=== PATIENT | female | born 1970 ===

== ENCOUNTER 2017-05-17 11:24 | Inpatient (IN) | payer OTHER ==
--- NOTE | 2017-05-17 13:07 | RAD ---
Indication: Seizure last night. RIGHT side numbness and weakness. Comparison: No relevant prior exams available on the [facility] PACS for comparison. Technique: Noncontrast CT vertex of skull through foramen magnum. Report: The sulci, ventricles, and basal cisterns are normal for age. Lam matter white matter differentiation is preserved without evidence for edema. No intra or extra axial hemorrhage, mass, or fluid collection detected. Unremarkable visualized orbital contents. Unremarkable calvarium and skull base. Unremarkable scalp. The visualized paranasal sinuses and mastoid air spaces are clear. IMPRESSION: Negative unenhanced head CT.
--- NOTE | 2017-05-17 13:09 | RAD ---
Indication: Seizure last night. RIGHT-sided weakness. Comparison: No relevant prior exams available on the [facility] PACS for comparison. Technique: Sitting AP chest 1303 hours Report: Mild bibasilar opacities with some linear characteristics most suspicious for subsegmental atelectasis. Negative for pleural effusion or pneumothorax. Upper normal heart size. Unremarkable central pulmonary vasculature and mediastinal contours. No thoracic fractures evident. IMPRESSION: Mild bibasilar subsegmental atelectasis.
[2017-05-17] MEDS ORDERED: Aspirin Low Dose CHEW TAB* 81 MG PO ONE (13:21)
[2017-05-17 13:38] LABS: Hematocrit 36 % (35-47); Hemoglobin 11.3 g/dl (12.0-16.0); Mean Corpuscular HGB Conc 31 g/dl (31-36); Mean Corpuscular Hemoglobin 22 pg (27-31); Mean Corpuscular Volume 72 fL (80-97); Mean Platelet Volume 8 um3 (7.4-10.4); Platelet Count 238 10^3/ul (150-450); Red Blood Count 5.05 10^6/ul (4.0-5.4); Red Cell Distribution Width 20 % (10.5-15); White Blood Count 4.5 10^3/ul (3.5-10.8)
[2017-05-17 13:41] LABS: INR 0.95 (0.77-1.02)
[2017-05-17 13:49] LABS: EGFR Non-African American 89.4 (>60)
[2017-05-17 13:53] LABS: Urine Appearance Clear; Urine Blood Negative (Negative); Urine Color Straw; Urine Ketones Negative (Negative); Urine Protein Negative (Negative); Urine Specific Gravity 1.005 (1.010-1.030); Urine Urobilinogen Negative (Negative)
[2017-05-17 14:05] LABS: ABS Basophils 0 10^3/ul (0-0.2); ABS Eosinophils 0.3 10^3/ul (0-0.6); ABS Lymphocytes 1.6 10^3/ul (1.0-4.8); ABS Monocytes 0.3 10^3/ul (0-0.8); ABS Neutrophils 2.3 10^3/ul (1.5-7.7); ABS Nucleated RBC 0 10^3/ul; Eosinophil % 6.3 % (0-6); Lymphocyte % 36.1 % (25-47); Nucleated Red Blood Cells % 0
[2017-05-17] MEDS ORDERED: LORazepam INJ* 2 MG/ML 1 ML VIAL ONE ×2 (15:53→19:16)
[2017-05-17] MEDS ORDERED: Midazolam* 1 MG/ML 2 ML VIAL (2 MG) ONE ×2 (15:57→16:00)
[2017-05-17] MEDS ORDERED: Midazolam* 1 MG/ML 2 ML VIAL (2 MG) IV ONE ×2 (15:58→15:59)
[2017-05-17] MEDS ORDERED: LORazepam INJ* 2 MG/ML 1 ML VIAL IV PUSH ONE ×2 (15:58→19:19)
--- NOTE | 2017-05-17 17:31 | RAD ---
Indication: RIGHT side weakness. Seizure activity. Comparison: CT brain of the same date. Technique: [employer] [place] 1.5 Linda [id number] with GEM suite. MRI brain without contrast. Seizure protocol. Report: Diffusion series is negative for acute or subacute ischemia. Susceptibility series is negative for stigmata of hemosiderin deposition to indicate previous hemorrhage. Unremarkable cerebral sulci, ventricles, and basal cisterns. Normal patterns of signal intensity throughout the cerebrum and posterior fossa. No intra or extra-axial lesions, developmental anomalies, or fluid collections evident. Unremarkable orbital contents. Preserved major intracranial flow-voids. Unremarkable calvarium and skull base. Grossly clear paranasal sinuses and mastoid air spaces. Unremarkable scalp. IMPRESSION: Negative unenhanced MRI of the brain.
[2017-05-17] MEDS ORDERED: Albuterol HFA INHALER* 8 gm MDI INH PRN (18:44)
[2017-05-17] MEDS: Phenytoin CAP(*) 100 MG CAP.ER PO SCH (21:09)
[2017-05-17] MEDS: levETIRAcetam TAB* 500 MG PO SCH (21:10)
[2017-05-17] MEDS: Polyethylene Glycol 3350* 17 GM PACKET PO SCH (22:12)
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
[2017-05-18] MEDS: LORazepam INJ* 2 MG/ML 1 ML VIAL IV PUSH PRN ×3 (02:02→08:42)
--- NOTE | 2017-05-18 02:38 | PN ---
Progress Note - Progress Note Date of Service: 05/18/17 Note: Paged - patient had seizure where she rolled onto her right side and upper extremities were clenched down. Ativan 2 mg was given. Patient now appears to be postictal and able to respond to voice.
[2017-05-18] MEDS ORDERED: LORazepam INJ* 2 MG/ML 1 ML VIAL IV PUSH ONE (03:45)
[2017-05-18] MEDS ORDERED: LORazepam INJ* 2 MG/ML 1 ML VIAL IV PUSH PRN (04:06)
[2017-05-18 06:15] LABS: EGFR Non-African American 90.9 (>60)
[2017-05-18] MEDS: Levothyroxine TAB* 100 MCG TAB PO SCH (06:21)
[2017-05-18] MEDS: NS 0.9% 1000 ML* 1,000 ML IV SCH ×2 (09:28→16:53)
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
[2017-05-18] MEDS: levETIRAcetam TAB* 500 MG PO SCH (10:34)
[2017-05-18] MEDS: Phenytoin CAP(*) 100 MG CAP.ER PO SCH (10:39)
[2017-05-18] MEDS: Cetirizine* 10 MG TAB PO SCH (10:39)
[2017-05-18] MEDS: Montelukast Sodium TAB* 10 MG PO SCH (10:41)
--- NOTE | 2017-05-18 10:52 | ED ---
Radha Garvey Edward, scribed for David Kumar MD on 05/17/17 at 1249 . Neurological HPI - HPI Summary HPI Summary: 46 y/o female brought in by correctional officers c/o R hand stuck in bent position and general R sided weakness s/p seizure yesterday morning sometime around 06:30 - 07:00. Pt has had these sx since yesterday. Pt has never had these symptoms before. Not aggravated or alleviated by anything. - History of Current Complaint Chief Complaint: EDNeurologicalDeficit Stated Complaint: RT SIDED NUMBNESS Time Seen by Provider: 05/17/17 12:38 Hx Obtained From: Patient Onset/Duration: Started hours ago Timing: Constant Number of Seizures: 1 Pain Intensity: 0 Aggravating: Nothing Alleviating: Nothing Associated Signs and Symptoms: Positive: Weakness - general R side, R hand stuck in bent position, Seizure - Allergy/Home Medications Allergies/Adverse Reactions: Allergies Allergy/AdvReac Type Severity Reaction Status Date / Time divalproex sodium Allergy Rash Verified 05/17/17 17:50 [From Depakote] methylprednisolone Allergy Hallucinati Verified 05/17/17 17:48 [From Solu-Medrol] ons risperidone [From Risperdal] Allergy Rash Verified 05/17/17 17:50 sulfamethoxazole Allergy Unknown Verified 05/17/17 17:42 [From Bactrim] Reaction Details theophylline Allergy Rash Verified 05/17/17 17:50 trimethoprim [From Bactrim] Allergy Unknown Verified 05/17/17 17:42 Reaction Details Home Medications: Home Medications Albuterol HFA INHALER* [Ventolin HFA Inhaler*] 2 puff INH Q4H PRN 05/17/17 [ History Confirmed 05/17/17] Cetirizine* [ZyrTEC 10 MG TAB*] 10 mg PO DAILY 05/17/17 [History Confirmed 05/17] Glecaprevir/Pibrentasvir [Mavyret 100-40 mg Tablet] 3 cap PO DAILY 05/17/17 [ History Confirmed 05/17/17] Levothyroxine TAB* [Synthroid TAB*] 100 mcg PO DAILY 05/17/17 [History Confirmed 05/17/17] Naproxen TAB* [Naprosyn 375 mg TAB*] 375 mg PO BID 05/17/17 [History Confirmed 05/17/17] Phenytoin CAP(*) [Dilantin CAP(*)] 200 mg PO BID 05/17/17 [History Confirmed 02/21] Polyethylene Glycol 3350* [Miralax*] 17 gm PO BID 05/17/17 [History Confirmed ] Zafirlukast (NF) [Accolate (NF)] 20 mg PO BID 05/17/17 [History Confirmed ] levETIRAcetam TAB* [Keppra TAB*] 1,250 mg PO BID 05/17/17 [History Confirmed 02/21] PMH/Surg Hx/FS Hx/Imm Hx Previously Healthy: No Endocrine/Hematology History: Reports: Other Endocrine/Hematological Disorders - HLD Denies: Hx Diabetes Cardiovascular History: Reports: Hx Hypertension Neurological History: Reports: Other Neuro Impairments/Disorders - epilepsy - Cancer History Hx Chemotherapy: No Hx Radiation Therapy: No - Surgical History Surgery Procedure, Year, and Place: HYSTERECTOMY, back surgery, jaw reconstruction Infectious Disease History: No Infectious Disease History: Reports: Hx Hepatitis - C Denies: Traveled Outside the [place] in Last 30 Days - Family History Known Family History: Positive: Diabetes - Social History Alcohol Use: None Hx Substance Use: No Substance Use Type: Reports: None Hx Tobacco Use: Yes Smoking Status (MU): Current Every Day Smoker Review of Systems Constitutional: Negative Eyes: Negative ENT: Negative Cardiovascular: Negative Respiratory: Negative Gastrointestinal: Negative Genitourinary: Negative Musculoskeletal: Negative Skin: Negative Neurological: Other - R hand stuck Positive: Weakness - R side weakness Psychological: Normal All Other Systems Reviewed And Are Negative: Yes Physical Exam - Summary Physical Exam Summary: VITAL SIGNS: Reviewed. GENERAL: Patient is a well-developed and nourished female who is lying comfortable in the stretcher. Patient is not in any acute respiratory distress. HEAD AND FACE: No signs of trauma. No ecchymosis, hematomas or skull depressions. No sinus tenderness. EYES: PERRLA, EOMI x 2, No injected conjunctiva, no nystagmus. No photophobia. EARS: Hearing grossly intact. Ear canals and tympanic membranes are within normal limits. MOUTH: Oropharynx within normal limits. NECK: Supple, trachea is midline, no adenopathy, no JVD, no carotid bruit, no c- spine tenderness, neck with full ROM. No meningeal signs, no Kernig's or brudzinskis signs. CHEST: Symmetric, no tenderness at palpation LUNGS: Clear to auscultation bilaterally. No wheezing or crackles. CVS: Regular rate and rhythm, S1 and S2 present, no murmurs or gallops appreciated. ABDOMEN: Soft, non-tender. No signs of distention. No rebound no guarding, and no masses palpated. Bowel sounds are normal. EXTREMITIES: FROM in all major joints, no edema, no cyanosis or clubbing. NEURO: Alert and oriented x 3. Pt has RLE and RUE weakness. NIH score 7. Speech is normal and follows commands. SKIN: Dry and warm GCS: 15 Triage Information Reviewed: Yes Vital Signs On Initial Exam: Initial Vitals Temp Pulse Resp BP Pulse Ox 97.1 F 60 15 128/83 98 05/17/17 11:49 05/17/17 11:49 05/17/17 11:49 05/17/17 11:49 05/17/17 11:49 Vital Signs Reviewed: Yes Diagnostics - Vital Signs Vital Signs Temp Pulse Resp BP Pulse Ox 05/17/17 11:49 97.1 F 60 15 128/83 98 - Laboratory Lab Results: Lab Results 05/17/17 05/17/17 05/17/17 Range/Units 13:25 13:25 13:25 WBC 4.5 (3.5-10.8) 10^3/ul RBC 5.05 (4.0-5.4) 10^6/ul Hgb 11.3 L (12.0-16.0) g/dl Hct 36 (35-47) % MCV 72 L (80-97) fL MCH 22 L (27-31) pg MCHC 31 (31-36) g/dl RDW 20 H (10.5-15) % Plt Count 238 (150-450) 10^3/ul MPV 8 (7.4-10.4) um3 Neut % (Auto) 51.1 (38-83) % Lymph % (Auto) 36.1 (25-47) % Schuyler % (Auto) 5.7 (1-9) % Eos % (Auto) 6.3 H (0-6) % Baso % (Auto) 0.8 (0-2) % Absolute Neuts (auto) 2.3 (1.5-7.7) 10^3/ul Absolute Lymphs (auto) 1.6 (1.0-4.8) 10^3/ul Absolute Monos (auto) 0.3 (0-0.8) 10^3/ul Absolute Eos (auto) 0.3 (0-0.6) 10^3/ul Absolute Basos (auto) 0 (0-0.2) 10^3/ul Absolute Nucleated RBC 0 10^3/ul Nucleated RBC % 0 INR (Anticoag Therapy) 0.95 (0.77-1.02) Sodium 137 (133-145) mmol/L Potassium 4.3 (3.5-5.0) mmol/L Chloride 104 (101-111) mmol/L Carbon Dioxide 28 (22-32) mmol/L Anion Gap 5 (2-11) mmol/L BUN 13 (6-24) mg/dL Creatinine 0.71 (0.51-0.95) mg/dL Est GFR ( Amer) 115.0 (>60) Est GFR (Non-Af Amer) 89.4 (>60) BUN/Creatinine Ratio 18.3 (8-20) Glucose 85 (70-100) mg/dL Lactic Acid (0.5-2.0) mmol/L Calcium 8.9 (8.6-10.3) mg/dL Magnesium 2.1 (1.9-2.7) mg/dL Total Bilirubin 0.20 (0.2-1.0) mg/dL AST 13 (13-39) U/L ALT 10 (7-52) U/L Alkaline Phosphatase 67 (34-104) U/L Total Protein 6.6 (6.4-8.9) g/dL Albumin 4.2 (3.2-5.2) g/dL Globulin 2.4 (2-4) g/dL Albumin/Globulin Ratio 1.8 (1-3) TSH 6.70 H (0.34-5.60) mcIU/mL Urine Color Urine Appearance Urine pH (5-9) Ur Specific [place] (1.010-1.030) Urine Protein (Negative) Urine Ketones (Negative) Urine Blood (Negative) Urine Nitrate (Negative) Urine Bilirubin (Negative) Urine Urobilinogen (Negative) Ur Leukocyte Esterase (Negative) Urine Glucose (Negative) Urine Opiates Screen (None Detect) Ur Barbiturates Screen (None Detect) Phenytoin 18.4 (10-20) mcg/mL Ur Phencyclidine Scrn (None Detect) Ur Amphetamines Screen (None Detect) U Benzodiazepines Scrn (None Detect) Urine Cocaine Screen (None Detect) U Cannabinoids Screen (None Detect) 05/17/17 05/17/17 05/17/17 Range/Units 13:25 13:38 13:38 WBC (3.5-10.8) 10^3/ul RBC (4.0-5.4) 10^6/ul Hgb (12.0-16.0) g/dl Hct (35-47) % MCV (80-97) fL MCH (27-31) pg MCHC (31-36) g/dl RDW (10.5-15) % Plt Count (150-450) 10^3/ul MPV (7.4-10.4) um3 Neut % (Auto) (38-83) % Lymph % (Auto) (25-47) % Schuyler % (Auto) (1-9) % Eos % (Auto) (0-6) % Baso % (Auto) (0-2) % Absolute Neuts (auto) (1.5-7.7) 10^3/ul Absolute Lymphs (auto) (1.0-4.8) 10^3/ul Absolute Monos (auto) (0-0.8) 10^3/ul Absolute Eos (auto) (0-0.6) 10^3/ul Absolute Basos (auto) (0-0.2) 10^3/ul Absolute Nucleated RBC 10^3/ul Nucleated RBC % INR (Anticoag Therapy) (0.77-1.02) Sodium (133-145) mmol/L Potassium (3.5-5.0) mmol/L Chloride (101-111) mmol/L Carbon Dioxide (22-32) mmol/L Anion Gap (2-11) mmol/L BUN (6-24) mg/dL Creatinine (0.51-0.95) mg/dL Est GFR ( Amer) (>60) Est GFR (Non-Af Amer) (>60) BUN/Creatinine Ratio (8-20) Glucose (70-100) mg/dL Lactic Acid 0.8 (0.5-2.0) mmol/L Calcium (8.6-10.3) mg/dL Magnesium (1.9-2.7) mg/dL Total Bilirubin (0.2-1.0) mg/dL AST (13-39) U/L ALT (7-52) U/L Alkaline Phosphatase (34-104) U/L Total Protein (6.4-8.9) g/dL Albumin (3.2-5.2) g/dL Globulin (2-4) g/dL Albumin/Globulin Ratio (1-3) TSH (0.34-5.60) mcIU/mL Urine Color Straw Urine Appearance Clear Urine pH 7.0 (5-9) Ur Specific [place] 1.005 L (1.010-1.030) Urine Protein Negative (Negative) Urine Ketones Negative (Negative) Urine Blood Negative (Negative) Urine Nitrate Negative (Negative) Urine Bilirubin Negative (Negative) Urine Urobilinogen Negative (Negative) Ur Leukocyte Esterase Negative (Negative) Urine Glucose Negative (Negative) Urine Opiates Screen None detected (None Detect) Ur Barbiturates Screen None detected (None Detect) Phenytoin (10-20) mcg/mL Ur Phencyclidine Scrn None detected (None Detect) Ur Amphetamines Screen None detected (None Detect) U Benzodiazepines Scrn None detected (None Detect) Urine Cocaine Screen None detected (None Detect) U Cannabinoids Screen None detected (None Detect) Result Diagrams: 05/17/17 13:25 05/18/17 05:33 Lab Statement: Any lab studies that have been ordered have been reviewed, and results considered in the medical decision making process. - Radiology CXR Xray Interpretation: Positive (See Comments) - Mild bibasilar subsegmental atelectasis. Radiology Interpretation Completed By: Radiologist - ED PHYSICIAN REVIEWS AND AGREES - CT BRAIN CT CT Interpretation: No Acute Changes - Negative unenhanced brain ct. CT Interpretation Completed By: Radiologist - ed physician reviews and agrees - Additional Comments Diagnostic Additional Comments: EKG - SB @ [address] Elevations BRAIN MRI - Negative unenhanced brain MRI of the brain. NIH Scale - NIH Scale Level of Consciousness: Alert/Keenly Responsive Ask Patient the Month and His/Her Age: Both Correct Ask Pt to Open/Close Eyes and Transformer Maker/Release Non-Paretic Hand: One Correctly Best Gaze (Only Horizontal Eye Movement): Normal Visual Field Testing: No Visual Loss Facial Paresis-Pt to Smile & Close Eyes or Grimace Symmetry: Normal/Symmetrical Motor Function - Right Arm: Effort Against [place] Motor Function - Left Arm: No Drift-Holds 10 Seconds Motor Function - Right Leg: Effort Against [place] Motor Function - Left Leg: No Drift-Holds 10 Seconds Limb Ataxia-Must be out of Proportion to Weakness Present: Present in One Limb Sensory (Use Pinprick to Test Arms/Legs/Trunk/Face): Pinprick Less on Affected Best Language (Describe Picture, Name Items): No Aphasia Dysarthria (Read Several Words): Normal Extinction and Inattention: No Abnormality Total Score: 7 Re-Evaluation - Re-Evaluation 1 Re-Evaluation Time: 15:54 Comment: Pt had a tonic-clonic seizure. Pt rolled over and stiffened up, seen by real estate utilization officer. Pt given 2x Ativan and 2 mg Versed. Pt had another convulsion lasting approximately 1 minute. Pt was given 2 mg Ativan and 2 mg Versed. Right now the pt is resting comfortable, postictal, with normal vital signs. Pt will go to her MRI. Course/Dx - Course Assessment/Plan: 46 y/o female brought in by correctional officers c/o R hand stuck in bent position and general R sided weakness s/p seizure yesterday morning sometime around 06:30 - 07:00. Pt has had these sx since yesterday. Pt has never had these symptoms before. Not aggravated or alleviated by anything. BRAIN CT SHOWS Negative unenhanced brain CT. CXR SHOWS Mild bibasilar subsegmental atelectasis. BRAIN MRI - Negative unenhanced brain MRI of the brain.Test results without significant abnormalities except TSH 6.7. UA uti. Urine toxicology negative. Because the pt has R side weakness we decided to do head ct. I discussed the case with dr tovar who recommends mri of head since ct is negative. Right before the mri the pt sustained a seizure and was given Ativan and versed. At this point I discussed with dr tovar who recommends the pt be admitted to ICU since repeat seizure. wants us to stop all seizure medications, and only give ativan and versed to treat seizures. dr tovar will consult in ICU. Discussed case with Dr. Smith, who accepted the pt for admission. Pt is hemodynamically stable, A&Ox3. - Differential Dx Differential Diagnoses Neuro: Positive: Cerebrovascular Accident, Postical, Seizure Disorder, Transient Ischemic Attack, Vasovagal Reaction - Diagnoses Provider Diagnoses: Seizure, Right sided weakness - Physician Notifications Discussed Care Of Patient With: Mike Tovar Time Discussed With Above Provider: 17:52 - Critical Care Time Critical Care Time: 75-104 min Discharge - Discharge Plan Condition: Stable Disposition: ADMITTED TO [facility] documentation as recorded by the Radha frye Edward accurately reflects the service I personally performed and the decisions made by , David Kumar MD.
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
[2017-05-18] MEDS: GLECAPREVIR PO SCH ×2 (13:43→17:50)
[2017-05-18] MEDS: PIBRENTASVIR PO SCH ×2 (13:43→17:50)
[2017-05-18] MEDS: Heparin VIAL(*) 5000 UNITS/ML VIAL (FIVE THOUSAND) SUBCUT SCH ×2 (13:51→21:57)
[2017-05-18] MEDS: Polyethylene Glycol 3350* 17 GM PACKET PO SCH (13:52)
[2017-05-18] MEDS ORDERED: Ondansetron INJ* 2 MG/ML VIAL IV PRN (20:54)
[2017-05-19] MEDS: NS 0.9% 1000 ML* 1,000 ML IV SCH ×2 (01:13→08:58)
[2017-05-19] MEDS: levETIRAcetam TAB* 500 MG PO SCH ×2 (03:16→10:13)
[2017-05-19] MEDS: Phenytoin CAP(*) 100 MG CAP.ER PO SCH ×2 (03:17→10:12)
[2017-05-19] MEDS: Polyethylene Glycol 3350* 17 GM PACKET PO SCH ×3 (03:17→21:43)
[2017-05-19] MEDS: Levothyroxine TAB* 100 MCG TAB PO SCH (06:03)
[2017-05-19] MEDS: Heparin VIAL(*) 5000 UNITS/ML VIAL (FIVE THOUSAND) SUBCUT SCH ×3 (06:03→21:43)
--- NOTE | 2017-05-19 08:58 | EEG ---
SKILLED NURSING VIDEO/EEG MONITORING - Monitoring Monitoring Start Date: 05/18/17 Current Monitoring Session: 05/18/17 at 07:30 to 05/19/17 at 08:05 EEG Clinical Indication: Kamryn Whitney is a 46 year old woman incarcerated at [facility] and was brought in with increased seizure frequency. In [facility] she has been having seizures every day to every other day and actually wears a helmet in the unit. She has seizures that cause her to drop and hit her head. She does have bladder incontinence at times with these events. After her seizures she has difficulty moving her right side and her hand actually becomes clawed. She has a prodrome of nausea and a metal taste in her mouth. At times she has seizures that cause her to fall out of bed. She was brought to the emergency room where she had an event withnessed by staff involving rolling on her left side, eyes were closed, foaming at the mouth. This lasted a few minutes and she was given Ativan and shortly after the event subsided. She was noted to desaturate during the event and was put on Oxygen. She then had another event in the ER and was again given Ativan. She continued to have "generalized tonic clonic movements" after that and was given more Ativan. She then had another seizure lasting 5 minutes and at this point EEG was started for continuous monitoring in the ICU for characterization. Introduction: INTRODUCTION: The EEG was monitored from 21 scalp electrodes. Nineteen electrodes consisted of the standard parasagittal, temporal and midline leads of the International 10 -20 system. In addition, special electrodes T1 and T2 were placed. EEG data were recorded on an [employer] system with simultaneous MPEG-4 digital video recording of patient behavior. EEG recording was in a monopolar montage with all electrodes referenced to FCz. Significant behavioral events were signaled by an event button, or putative electrical seizure events were detected by a computer program. All EEG data were reviewed in their entirety on a monitor with reconstruction of montages and adjustments of sensitivity and filtering. Simultaneous patient behavior was viewed on an adjacent monitor and correlated with the EEG. - Medications Active Medications: Acetaminophen (Tylenol Tab*) 650 mg PO Q6H PRN PRN Reason: FEVER/PAIN Albuterol (Ventolin Hfa Inhaler*) 2 puff INH Q4H PRN PRN Reason: SOB/WHEEZING Cetirizine HCl (Zyrtec*) 10 mg PO DAILY [facility] PRN Reason: Protocol Last Admin: 05/18/17 10:39 Dose: 10 mg Heparin Sodium (Porcine) (Heparin Vial(*)) 5,000 units SUBCUT Q8HR [facility] Last Admin: 05/19/17 06:03 Dose: 5,000 units Sodium Chloride (Ns 0.9% 1000 Ml*) 1,000 mls @ 125 mls/hr IV PER RATE [facility] Last Admin: 05/19/17 01:13 Dose: 125 mls/hr Levetiracetam (Keppra Tab*) 750 mg PO BID [facility] Last Admin: 05/19/17 03:16 Dose: Not Given Levothyroxine Sodium (Synthroid Tab*) 100 mcg PO 0600 [facility] Last Admin: 05/19/17 06:03 Dose: 100 mcg Montelukast Sodium (Singulair Tab*) 10 mg PO DAILY [facility] PRN Reason: Protocol Last Admin: 05/18/17 10:41 Dose: 10 mg Pto Nf Med ( Glecaprevir/Pibrentasvir [ Mavyret 100-40 Mg Tablet] 3 Cap) 3 cap PO DAILY [facility] Last Admin: 05/18/17 17:50 Dose: 3 cap Ondansetron HCl (Zofran Inj*) 4 mg IV Q6H PRN PRN Reason: NAUSEA Last Admin: 05/18/17 21:58 Dose: 4 mg Phenytoin Sodium (Dilantin Cap(*)) 100 mg PO BID [facility] Last Admin: 05/19/17 03:17 Dose: Not Given Polyethylene Glycol/Electrolytes (Miralax*) 17 gm PO BID [facility] Last Admin: 05/19/17 03:17 Dose: Not Given At the start of the monitoring session, the patient was on levetiracetam 1250mg BID and phenytoin 200mg BID. She had also received lorazepam 1mg x3 on 05/18 at 02:02, 02:07 and 08:42, then 2mg at 03:49. - Description Background: The waking background showed appropriate organization with clearly defined anterior-posterior voltage and frequency gradients. There was a defined posterior dominant rhythm of 9 Hertz, which was symmetrical and showed normal reactivity. Anteriorly, there was the expected pattern of lower voltage and more irregular theta and beta rhythms. There was excessive beta activity present , consistent with medication effect. The sleep background was appropriately organized with well-developed spindles and vertex waves indicative of stage 2 sleep. These sleep transients showed appropriate morphology and were bilaterally synchronous and symmetrical. Development of diffuse delta range frequencies with dropout of stage 2 architecture accompanied transition to slow wave sleep, and a lower voltage mixed frequency pattern associated with eye movements was consistent with REM sleep. Intericatal Epileptiform Activity: None Ictal Activity: The patient experienced several episodes over the course of this monitoring session. The entire body would stiffen, eyes closed, and there was irregular jerking of the head, arms and legs, some back arching. Her breathing would be irregular at times as well. Sometimes there were large amplitude movements of the entire body, with her moving from belly to back and back again. She made frequent moaning/grunting vocalizations during these events and often coughed/ gagged. She was unresponsive to commands during this time. With a few of the events around 19:30-21:00 on 05/18, she had some vomiting. The EEG showed a normal waking background during these events. There were no ictal patterns recorded. - Impression Impression: This is a normal long-term monitoring session. Excess beta is expected in the setting of benzodiazepine use. There are no epileptiform abnormalities or ictal patterns/seizures. The patient experienced several events during the course of this recording as described above. These events involved diminished responsiveness, body stiffening, irregular body and head jerking, irregular breathing, moaning/ grunting vocalizations and sometimes vomiting. The EEG was normal during these events. These events are non-epileptic in nature.
[2017-05-19] MEDS ORDERED: NS 0.9% 1000 ML* 1,000 ML IV SCH (10:07)
[2017-05-19] MEDS: Cetirizine* 10 MG TAB PO SCH (10:12)
[2017-05-19] MEDS: Montelukast Sodium TAB* 10 MG PO SCH (10:12)
[2017-05-19] MEDS: PIBRENTASVIR PO SCH (10:13)
[2017-05-19] MEDS: GLECAPREVIR PO SCH (10:13)
--- NOTE | 2017-05-19 10:19 | PN ---
Subjective Date of Service: 05/19/17 Interval History: Pt had several episodes of seizures/pseudoseizures last night. Vomited during the seizure still c/o r arm and leg numbness Objective Active Medications: Acetaminophen (Tylenol Tab*) 650 mg PO Q6H PRN PRN Reason: FEVER/PAIN Albuterol (Ventolin Hfa Inhaler*) 2 puff INH Q4H PRN PRN Reason: SOB/WHEEZING Cetirizine HCl (Zyrtec*) 10 mg PO DAILY [facility] PRN Reason: Protocol Last Admin: 05/19/17 10:12 Dose: 10 mg Heparin Sodium (Porcine) (Heparin Vial(*)) 5,000 units SUBCUT Q8HR [facility] Last Admin: 05/19/17 06:03 Dose: 5,000 units Sodium Chloride (Ns 0.9% 1000 Ml*) 1,000 mls @ 50 mls/hr IV PER RATE [facility] Levetiracetam (Keppra Tab*) 750 mg PO BID [facility] Last Admin: 05/19/17 10:13 Dose: 750 mg Levothyroxine Sodium (Synthroid Tab*) 100 mcg PO 0600 [facility] Last Admin: 05/19/17 06:03 Dose: 100 mcg Montelukast Sodium (Singulair Tab*) 10 mg PO DAILY [facility] PRN Reason: Protocol Last Admin: 05/19/17 10:12 Dose: 10 mg Pto Nf Med ( Glecaprevir/Pibrentasvir [ Mavyret 100-40 Mg Tablet] 3 Cap) 3 cap PO DAILY [facility] Last Admin: 05/19/17 10:13 Dose: 3 cap Ondansetron HCl (Zofran Inj*) 4 mg IV Q6H PRN PRN Reason: NAUSEA Last Admin: 05/18/17 21:58 Dose: 4 mg Phenytoin Sodium (Dilantin Cap(*)) 100 mg PO BID [facility] Last Admin: 05/19/17 10:12 Dose: 100 mg Polyethylene Glycol/Electrolytes (Miralax*) 17 gm PO BID [facility] Last Admin: 05/19/17 10:13 Dose: 17 gm Vital Signs - 8 hr 05/19/17 05/19/17 05/19/17 03:00 04:00 05:00 Temperature 98.7 F Pulse Rate 53 56 55 Respiratory 14 16 15 Rate Blood Pressure 100/62 104/77 94/61 (mmHg) O2 Sat by Pulse 95 95 96 Oximetry 05/19/17 05/19/17 05/19/17 06:00 07:00 07:01 Temperature Pulse Rate 53 60 61 Respiratory 13 17 14 Rate Blood Pressure 89/61 115/73 (mmHg) O2 Sat by Pulse 96 93 97 Oximetry 05/19/17 08:00 Temperature 98.4 F Pulse Rate 54 Respiratory 10 Rate Blood Pressure 128/92 (mmHg) O2 Sat by Pulse 99 Oximetry Oxygen Devices in Use Now: None Appearance: 46 yo F, AAOx3 Eyes: No Scleral Icterus, PERRLA Ears/Nose/Mouth/Throat: NL Teeth, Lips, Gums, Mucous Membranes Moist Neck: NL Appearance and Movements; NL JVP, Trachea Midline Respiratory: Symmetrical Chest Expansion and Respiratory Effort, Clear to Auscultation Cardiovascular: NL Sounds; No Murmurs; No JVD, RRR Abdominal: NL Sounds; No Tenderness; No Distention, No Hepatosplenomegaly Lymphatic: No Cervical Adenopathy Extremities: No Edema, No Clubbing, Cyanosis Skin: No Rash or Ulcers, No Nodules or Sclerosis Neurological: Alert and Oriented x 3, - - R arm/hand contracted, R leg weak at 3 /5 Result Diagrams: 05/17/17 13:25 05/18/17 05:33 Additional Lab and Data: Lab Results 05/17/17 05/17/17 05/17/17 Range/Units 13:25 13:25 13:25 WBC 4.5 (3.5-10.8) 10^3/ul RBC 5.05 (4.0-5.4) 10^6/ul Hgb 11.3 L (12.0-16.0) g/dl Hct 36 (35-47) % MCV 72 L (80-97) fL MCH 22 L (27-31) pg MCHC 31 (31-36) g/dl RDW 20 H (10.5-15) % Plt Count 238 (150-450) 10^3/ul MPV 8 (7.4-10.4) um3 Neut % (Auto) 51.1 (38-83) % Lymph % (Auto) 36.1 (25-47) % [place] % (Auto) 5.7 (1-9) % Eos % (Auto) 6.3 H (0-6) % Baso % (Auto) 0.8 (0-2) % Absolute Neuts (auto) 2.3 (1.5-7.7) 10^3/ul Absolute Lymphs (auto) 1.6 (1.0-4.8) 10^3/ul Absolute Monos (auto) 0.3 (0-0.8) 10^3/ul Absolute Eos (auto) 0.3 (0-0.6) 10^3/ul Absolute Basos (auto) 0 (0-0.2) 10^3/ul Absolute Nucleated RBC 0 10^3/ul Nucleated RBC % 0 INR (Anticoag Therapy) 0.95 (0.77-1.02) Sodium 137 (133-145) mmol/L Potassium 4.3 (3.5-5.0) mmol/L Chloride 104 (101-111) mmol/L Carbon Dioxide 28 (22-32) mmol/L Anion Gap 5 (2-11) mmol/L BUN 13 (6-24) mg/dL Creatinine 0.71 (0.51-0.95) mg/dL Est GFR ( Amer) 115.0 (>60) Est GFR (Non-Af Amer) 89.4 (>60) BUN/Creatinine Ratio 18.3 (8-20) Glucose 85 (70-100) mg/dL Lactic Acid (0.5-2.0) mmol/L Calcium 8.9 (8.6-10.3) mg/dL Magnesium 2.1 (1.9-2.7) mg/dL Total Bilirubin 0.20 (0.2-1.0) mg/dL AST 13 (13-39) U/L ALT 10 (7-52) U/L Alkaline Phosphatase 67 (34-104) U/L Total Protein 6.6 (6.4-8.9) g/dL Albumin 4.2 (3.2-5.2) g/dL Globulin 2.4 (2-4) g/dL Albumin/Globulin Ratio 1.8 (1-3) TSH 6.70 H (0.34-5.60) mcIU/mL Urine Color Urine Appearance Urine pH (5-9) Ur Specific [place] (1.010-1.030) Urine Protein (Negative) Urine Ketones (Negative) Urine Blood (Negative) Urine Nitrate (Negative) Urine Bilirubin (Negative) Urine Urobilinogen (Negative) Ur Leukocyte Esterase (Negative) Urine Glucose (Negative) Urine Opiates Screen (None Detect) Ur Barbiturates Screen (None Detect) Phenytoin 18.4 (10-20) mcg/mL Ur Phencyclidine Scrn (None Detect) Ur Amphetamines Screen (None Detect) U Benzodiazepines Scrn (None Detect) Urine Cocaine Screen (None Detect) U Cannabinoids Screen (None Detect) 05/17/17 05/17/17 05/17/17 Range/Units 13:25 13:38 13:38 WBC (3.5-10.8) 10^3/ul RBC (4.0-5.4) 10^6/ul Hgb (12.0-16.0) g/dl Hct (35-47) % MCV (80-97) fL MCH (27-31) pg MCHC (31-36) g/dl RDW (10.5-15) % Plt Count (150-450) 10^3/ul MPV (7.4-10.4) um3 Neut % (Auto) (38-83) % Lymph % (Auto) (25-47) % [place] % (Auto) (1-9) % Eos % (Auto) (0-6) % Baso % (Auto) (0-2) % Absolute Neuts (auto) (1.5-7.7) 10^3/ul Absolute Lymphs (auto) (1.0-4.8) 10^3/ul Absolute Monos (auto) (0-0.8) 10^3/ul Absolute Eos (auto) (0-0.6) 10^3/ul Absolute Basos (auto) (0-0.2) 10^3/ul Absolute Nucleated RBC 10^3/ul Nucleated RBC % INR (Anticoag Therapy) (0.77-1.02) Sodium (133-145) mmol/L Potassium (3.5-5.0) mmol/L Chloride (101-111) mmol/L Carbon Dioxide (22-32) mmol/L Anion Gap (2-11) mmol/L BUN (6-24) mg/dL Creatinine (0.51-0.95) mg/dL Est GFR ( Amer) (>60) Est GFR (Non-Af Amer) (>60) BUN/Creatinine Ratio (8-20) Glucose (70-100) mg/dL Lactic Acid 0.8 (0.5-2.0) mmol/L Calcium (8.6-10.3) mg/dL Magnesium (1.9-2.7) mg/dL Total Bilirubin (0.2-1.0) mg/dL AST (13-39) U/L ALT (7-52) U/L Alkaline Phosphatase (34-104) U/L Total Protein (6.4-8.9) g/dL Albumin (3.2-5.2) g/dL Globulin (2-4) g/dL Albumin/Globulin Ratio (1-3) TSH (0.34-5.60) mcIU/mL Urine Color Straw Urine Appearance Clear Urine pH 7.0 (5-9) Ur Specific [place] 1.005 L (1.010-1.030) Urine Protein Negative (Negative) Urine Ketones Negative (Negative) Urine Blood Negative (Negative) Urine Nitrate Negative (Negative) Urine Bilirubin Negative (Negative) Urine Urobilinogen Negative (Negative) Ur Leukocyte Esterase Negative (Negative) Urine Glucose Negative (Negative) Urine Opiates Screen None detected (None Detect) Ur Barbiturates Screen None detected (None Detect) Phenytoin (10-20) mcg/mL Ur Phencyclidine Scrn None detected (None Detect) Ur Amphetamines Screen None detected (None Detect) U Benzodiazepines Scrn None detected (None Detect) Urine Cocaine Screen None detected (None Detect) U Cannabinoids Screen None detected (None Detect) Microbiology and Other Data: Microbiology 05/17/17 20:00 Nasal Screen MRSA (PCR)(PATY) - Final Nasal Mrsa Not Detected Assess/Plan/Problems-Billing Assessment: 46 yo f with h/o cocaine abuse and seizures(? nonepileptic) presents from [facility] with intractable seizures - Patient Problems (1) Seizures Comment: Epileptis vs nonepileptic As d/w DR. 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 (2) Hepatitis C Comment: during treatment as outpatient pt's ativiral med is currently held (3) Hypothyroidism Comment: TSH 6.7 cont Synthroid at current dose. Recommend repeat TSH as outpatient once pt's neuro status stabilized. No dose adjustment for now (4) DVT prophylaxis Comment: HSQ Status and Disposition: inpatient
[2017-05-19] MEDS ORDERED: LORazepam INJ* 2 MG/ML 1 ML VIAL IV PUSH ONE ×2 (11:00→15:00)
--- NOTE | 2017-05-19 11:45 | PN ---
Subjective Date of Service: 05/19/17 Interval History: She had several episodes overnight of continued seizure like activity, several associated with vomiting. EEG during episodes showed no epileptiform abnormalities. The patient continues to note right face, arm and leg weakness and completely numbness. Denies any left sided symptoms. No vertigo. She did not receive her medications last night due to vomiting. Objective Active Medications: Acetaminophen (Tylenol Tab*) 650 mg PO Q6H PRN PRN Reason: FEVER/PAIN Albuterol (Ventolin Hfa Inhaler*) 2 puff INH Q4H PRN PRN Reason: SOB/WHEEZING Cetirizine HCl (Zyrtec*) 10 mg PO DAILY [facility] PRN Reason: Protocol Last Admin: 05/19/17 10:12 Dose: 10 mg Heparin Sodium (Porcine) (Heparin Vial(*)) 5,000 units SUBCUT Q8HR [facility] Last Admin: 05/19/17 06:03 Dose: 5,000 units Sodium Chloride (Ns 0.9% 1000 Ml*) 1,000 mls @ 50 mls/hr IV PER RATE [facility] Levetiracetam (Keppra Tab*) 750 mg PO BID [facility] Last Admin: 05/19/17 10:13 Dose: 750 mg Levothyroxine Sodium (Synthroid Tab*) 100 mcg PO 0600 [facility] Last Admin: 05/19/17 06:03 Dose: 100 mcg Lorazepam (Ativan Inj*) 2 mg IV PUSH 1500 ONE Stop: 05/19/17 15:01 Montelukast Sodium (Singulair Tab*) 10 mg PO DAILY [facility] PRN Reason: Protocol Last Admin: 05/19/17 10:12 Dose: 10 mg Pto Nf Med ( Glecaprevir/Pibrentasvir [ Mavyret 100-40 Mg Tablet] 3 Cap) 3 cap PO DAILY [facility] Last Admin: 05/19/17 10:13 Dose: 3 cap Ondansetron HCl (Zofran Inj*) 4 mg IV Q6H PRN PRN Reason: NAUSEA Last Admin: 05/18/17 21:58 Dose: 4 mg Phenytoin Sodium (Dilantin Cap(*)) 100 mg PO BID [facility] Last Admin: 05/19/17 10:12 Dose: 100 mg Polyethylene Glycol/Electrolytes (Miralax*) 17 gm PO BID [facility] Last Admin: 05/19/17 10:13 Dose: 17 gm Vital Signs 05/18/17 05/18/17 05/18/17 12:00 13:00 13:01 Temperature 97.7 F Pulse Rate 51 54 56 Respiratory 8 17 15 Rate Blood Pressure 140/99 136/99 (mmHg) O2 Sat by Pulse 92 89 Oximetry 05/18/17 05/18/17 05/18/17 13:58 14:00 15:00 Temperature Pulse Rate 66 63 Respiratory 18 14 18 Rate Blood Pressure 129/92 109/70 (mmHg) O2 Sat by Pulse 96 92 Oximetry 05/18/17 05/18/17 05/18/17 16:00 16:30 17:00 Temperature 100.2 F Pulse Rate 60 58 Respiratory 17 21 Rate Blood Pressure 107/67 (mmHg) O2 Sat by Pulse 95 93 Oximetry 05/18/17 05/18/17 05/18/17 18:00 18:01 19:00 Temperature Pulse Rate 70 63 Respiratory 19 19 20 Rate Blood Pressure 115/83 134/86 (mmHg) O2 Sat by Pulse 100 98 Oximetry 05/18/17 05/18/17 05/18/17 19:54 20:00 20:02 Temperature 97.8 F Pulse Rate 70 64 68 Respiratory 16 19 12 Rate Blood Pressure 153/135 (mmHg) O2 Sat by Pulse 98 95 89 Oximetry 05/18/17 05/18/17 05/18/17 21:00 21:01 22:00 Temperature Pulse Rate 70 73 72 Respiratory 14 16 20 Rate Blood Pressure 147/72 (mmHg) O2 Sat by Pulse 95 98 92 Oximetry 05/18/17 05/18/17 05/19/17 22:01 23:00 00:00 Temperature 97.8 F Pulse Rate 71 64 67 Respiratory 23 17 18 Rate Blood Pressure 96/63 102/74 86/62 (mmHg) O2 Sat by Pulse 94 94 94 Oximetry 05/19/17 05/19/17 05/19/17 01:00 02:00 03:00 Temperature Pulse Rate 57 62 53 Respiratory 16 16 14 Rate Blood Pressure 94/61 82/55 100/62 (mmHg) O2 Sat by Pulse 97 95 95 Oximetry 05/19/17 05/19/17 05/19/17 04:00 05:00 06:00 Temperature 98.7 F Pulse Rate 56 55 53 Respiratory 16 15 13 Rate Blood Pressure 104/77 94/61 89/61 (mmHg) O2 Sat by Pulse 95 96 96 Oximetry 05/19/17 05/19/17 05/19/17 07:00 07:01 08:00 Temperature 98.4 F Pulse Rate 60 61 54 Respiratory 17 14 10 Rate Blood Pressure 115/73 128/92 (mmHg) O2 Sat by Pulse 93 97 99 Oximetry 05/19/17 05/19/17 05/19/17 09:00 10:00 11:00 Temperature Pulse Rate 59 58 60 Respiratory 18 18 17 Rate Blood Pressure 109/76 118/71 111/71 (mmHg) O2 Sat by Pulse 96 96 96 Oximetry Oxygen Devices in Use Now: None Neurology Exam: General: Awake, Alert, Oriented x3. EEG leads in place HEENT: Normocephelic/atraumatic, sclera anicteric, mucous membranes moist Neck: Supple Chest: Clear to auscultation bilaterally Cardiovascular: Regular rate and rhythm without murmurs, rubs, gallops Abdomen: Soft, nontender/nondistended Extremities: No clubbing, cyanosis, or edema Neurological Findings: Awake, Alert, Oriented x3 Speech: fluent without dysarthria, repetition intact Cranial Nerve: PEERL, EOM intact, VFF, no nystagmus, face symmetric bilaterally , facial sensation intact, hearing intact to finger rub bilaterally, palate elevates symmetrically, tongue midline Motor: Left side 5/5 throughout with normal tone. Right side: Minimal movement of the right upper and lower extremities. Right arm held flexed at the elbow and wrist with increased tone, able to straighten out with assistance. Able to lift right arm and leg off the bed for short amount of time. 4-/5 flexion/extension a the right foot. Sensation: Notes numbness and loss of sensation in the right face/arm/leg. Does not withdraw to pain on the right side. Deep Tendon Reflex: 2+ symmetric in the upper/lower extremities, Babinski - equivocal bilaterally Finger to nose, rapid alternating movements intact without tremor on the left. Minimal movement on the right Result Diagrams: 05/17/17 13:25 05/18/17 05:33 Additional Lab and Data: Lab Results 05/17/17 05/17/17 05/17/17 Range/Units 13:25 13:25 13:25 WBC 4.5 (3.5-10.8) 10^3/ul RBC 5.05 (4.0-5.4) 10^6/ul Hgb 11.3 L (12.0-16.0) g/dl Hct 36 (35-47) % MCV 72 L (80-97) fL MCH 22 L (27-31) pg MCHC 31 (31-36) g/dl RDW 20 H (10.5-15) % Plt Count 238 (150-450) 10^3/ul MPV 8 (7.4-10.4) um3 Neut % (Auto) 51.1 (38-83) % Lymph % (Auto) 36.1 (25-47) % [place] % (Auto) 5.7 (1-9) % Eos % (Auto) 6.3 H (0-6) % Baso % (Auto) 0.8 (0-2) % Absolute Neuts (auto) 2.3 (1.5-7.7) 10^3/ul Absolute Lymphs (auto) 1.6 (1.0-4.8) 10^3/ul Absolute Monos (auto) 0.3 (0-0.8) 10^3/ul Absolute Eos (auto) 0.3 (0-0.6) 10^3/ul Absolute Basos (auto) 0 (0-0.2) 10^3/ul Absolute Nucleated RBC 0 10^3/ul Nucleated RBC % 0 INR (Anticoag Therapy) 0.95 (0.77-1.02) Sodium 137 (133-145) mmol/L Potassium 4.3 (3.5-5.0) mmol/L Chloride 104 (101-111) mmol/L Carbon Dioxide 28 (22-32) mmol/L Anion Gap 5 (2-11) mmol/L BUN 13 (6-24) mg/dL Creatinine 0.71 (0.51-0.95) mg/dL Est GFR ( Amer) 115.0 (>60) Est GFR (Non-Af Amer) 89.4 (>60) BUN/Creatinine Ratio 18.3 (8-20) Glucose 85 (70-100) mg/dL Lactic Acid (0.5-2.0) mmol/L Calcium 8.9 (8.6-10.3) mg/dL Magnesium 2.1 (1.9-2.7) mg/dL Total Bilirubin 0.20 (0.2-1.0) mg/dL AST 13 (13-39) U/L ALT 10 (7-52) U/L Alkaline Phosphatase 67 (34-104) U/L Total Protein 6.6 (6.4-8.9) g/dL Albumin 4.2 (3.2-5.2) g/dL Globulin 2.4 (2-4) g/dL Albumin/Globulin Ratio 1.8 (1-3) TSH 6.70 H (0.34-5.60) mcIU/mL Urine Color Urine Appearance Urine pH (5-9) Ur Specific [place] (1.010-1.030) Urine Protein (Negative) Urine Ketones (Negative) Urine Blood (Negative) Urine Nitrate (Negative) Urine Bilirubin (Negative) Urine Urobilinogen (Negative) Ur Leukocyte Esterase (Negative) Urine Glucose (Negative) Urine Opiates Screen (None Detect) Ur Barbiturates Screen (None Detect) Phenytoin 18.4 (10-20) mcg/mL Ur Phencyclidine Scrn (None Detect) Ur Amphetamines Screen (None Detect) U Benzodiazepines Scrn (None Detect) Urine Cocaine Screen (None Detect) U Cannabinoids Screen (None Detect) 05/17/17 05/17/17 05/17/17 Range/Units 13:25 13:38 13:38 WBC (3.5-10.8) 10^3/ul RBC (4.0-5.4) 10^6/ul Hgb (12.0-16.0) g/dl Hct (35-47) % MCV (80-97) fL MCH (27-31) pg MCHC (31-36) g/dl RDW (10.5-15) % Plt Count (150-450) 10^3/ul MPV (7.4-10.4) um3 Neut % (Auto) (38-83) % Lymph % (Auto) (25-47) % [place] % (Auto) (1-9) % Eos % (Auto) (0-6) % Baso % (Auto) (0-2) % Absolute Neuts (auto) (1.5-7.7) 10^3/ul Absolute Lymphs (auto) (1.0-4.8) 10^3/ul Absolute Monos (auto) (0-0.8) 10^3/ul Absolute Eos (auto) (0-0.6) 10^3/ul Absolute Basos (auto) (0-0.2) 10^3/ul Absolute Nucleated RBC 10^3/ul Nucleated RBC % INR (Anticoag Therapy) (0.77-1.02) Sodium (133-145) mmol/L Potassium (3.5-5.0) mmol/L Chloride (101-111) mmol/L Carbon Dioxide (22-32) mmol/L Anion Gap (2-11) mmol/L BUN (6-24) mg/dL Creatinine (0.51-0.95) mg/dL Est GFR ( Amer) (>60) Est GFR (Non-Af Amer) (>60) BUN/Creatinine Ratio (8-20) Glucose (70-100) mg/dL Lactic Acid 0.8 (0.5-2.0) mmol/L Calcium (8.6-10.3) mg/dL Magnesium (1.9-2.7) mg/dL Total Bilirubin (0.2-1.0) mg/dL AST (13-39) U/L ALT (7-52) U/L Alkaline Phosphatase (34-104) U/L Total Protein (6.4-8.9) g/dL Albumin (3.2-5.2) g/dL Globulin (2-4) g/dL Albumin/Globulin Ratio (1-3) TSH (0.34-5.60) mcIU/mL Urine Color Straw Urine Appearance Clear Urine pH 7.0 (5-9) Ur Specific [place] 1.005 L (1.010-1.030) Urine Protein Negative (Negative) Urine Ketones Negative (Negative) Urine Blood Negative (Negative) Urine Nitrate Negative (Negative) Urine Bilirubin Negative (Negative) Urine Urobilinogen Negative (Negative) Ur Leukocyte Esterase Negative (Negative) Urine Glucose Negative (Negative) Urine Opiates Screen None detected (None Detect) Ur Barbiturates Screen None detected (None Detect) Phenytoin (10-20) mcg/mL Ur Phencyclidine Scrn None detected (None Detect) Ur Amphetamines Screen None detected (None Detect) U Benzodiazepines Scrn None detected (None Detect) Urine Cocaine Screen None detected (None Detect) U Cannabinoids Screen None detected (None Detect) Microbiology and Other Data: Microbiology 05/17/17 20:00 Nasal Screen MRSA (PCR)(PATY) - Final Nasal Mrsa Not Detected Assessment/Plan Assessment: 46 year old with a history of substance abuse, currently in [facility], history of seizures and 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 Was treated with Dilantin and Keppra on admission with ongoing seizure like activity: --she continues to have PNEA. Reassured the patient that we are not seeing any EEG changes with the events. At times, incontinent of bladder. Vomited several times last night. I am weaning her off of the Dilantin and Keppra and will continue EEG monitoring --Right sided numbness and weakness: unclear etiology. Repeat MRI with and without contrast to look for any intracranial abnormalities which might explain her symptoms. At times, I have witnessed her using her right arm to eat and she has moved it repeatedly on video EEG monitoring. I suspect there is a psychogenic component to this. --I am going to stop her Keppra and Dilantin tonight. --Zofran prn for vomiting --Will continue to monitor her in the ICU setting as we wean off of medication.
[2017-05-19] MEDS ORDERED: Gadoteridol* (CONTRAST) 279.3 MG/ML 10 ML IV ONE (16:44)
--- NOTE | 2017-05-19 17:06 | RAD ---
INDICATION: Right side numbness and weakness since seizure the previous night. COMPARISON: Unenhanced MRI of the brain May 17, 2017 TECHNIQUE: Sagittal T1, axial T1, T2, susceptibility, FLAIR and diffusion-weighted images were obtained. In addition, axial, sagittal and coronal T1-weighted images were obtained following intravenous injection of 15 mL of ProHance contrast. FINDINGS: Image quality is limited by motion artifact. The ventricles, cisterns and sulci appear to be within normal limits. The aguilar-white matter differentiation is appropriately maintained. No other significant focal abnormality or mass effect is seen. No areas of restricted diffusion are present. There is no evidence for infarct or hemorrhage. The visualized portion of the paranasal sinuses and mastoid air cells appear clear. IMPRESSION: Normal MRI of the brain with and without intravenous contrast.
[2017-05-19] MEDS: Acetaminophen TAB* 325 MG PO PRN (19:01)
[2017-05-20] MEDS: Heparin VIAL(*) 5000 UNITS/ML VIAL (FIVE THOUSAND) SUBCUT SCH ×3 (05:50→21:37)
[2017-05-20] MEDS: Levothyroxine TAB* 100 MCG TAB PO SCH (05:50)
[2017-05-20] MEDS: Polyethylene Glycol 3350* 17 GM PACKET PO SCH ×2 (08:05→19:31)
[2017-05-20] MEDS: Montelukast Sodium TAB* 10 MG PO SCH (08:06)
[2017-05-20] MEDS: Cetirizine* 10 MG TAB PO SCH (08:06)
[2017-05-20] MEDS: GLECAPREVIR PO SCH (08:07)
[2017-05-20] MEDS: PIBRENTASVIR PO SCH (08:07)
--- NOTE | 2017-05-20 08:32 | PN ---
Subjective Date of Service: 05/20/17 Interval History: No issues overnight. No reported seizures. Patient is tolerating food, no nausea or vomiting. Continued weakness and numbness of the right arm and leg. "I feel a bit better." MRI Brain: 05/19/17: Negative. I personally reviewed the films Objective Active Medications: Acetaminophen (Tylenol Tab*) 650 mg PO Q6H PRN PRN Reason: FEVER/PAIN Last Admin: 05/19/17 19:01 Dose: 650 mg Albuterol (Ventolin Hfa Inhaler*) 2 puff INH Q4H PRN PRN Reason: SOB/WHEEZING Cetirizine HCl (Zyrtec*) 10 mg PO DAILY SUKH PRN Reason: Protocol Last Admin: 05/20/17 08:06 Dose: 10 mg Heparin Sodium (Porcine) (Heparin Vial(*)) 5,000 units SUBCUT Q8HR [facility] Last Admin: 05/20/17 05:50 Dose: 5,000 units Sodium Chloride (Ns 0.9% 1000 Ml*) 1,000 mls @ 50 mls/hr IV PER RATE [facility] Levothyroxine Sodium (Synthroid Tab*) 100 mcg PO 0600 [facility] Last Admin: 05/20/17 05:50 Dose: 100 mcg Montelukast Sodium (Singulair Tab*) 10 mg PO DAILY SUKH PRN Reason: Protocol Last Admin: 05/20/17 08:06 Dose: 10 mg Pto Nf Med ( Glecaprevir/Pibrentasvir [ Mavyret 100-40 Mg Tablet] 3 Cap) 3 cap PO DAILY [facility] Last Admin: 05/20/17 08:07 Dose: 3 cap Ondansetron HCl (Zofran Inj*) 4 mg IV Q6H PRN PRN Reason: NAUSEA Last Admin: 05/18/17 21:58 Dose: 4 mg Polyethylene Glycol/Electrolytes (Miralax*) 17 gm PO BID [facility] Last Admin: 05/20/17 08:05 Dose: 17 gm Vital Signs 05/19/17 05/19/17 05/19/17 09:00 10:00 11:00 Temperature Pulse Rate 59 58 60 Respiratory 18 18 17 Rate Blood Pressure 109/76 118/71 111/71 (mmHg) O2 Sat by Pulse 96 96 96 Oximetry 05/19/17 05/19/17 05/19/17 12:00 13:00 13:01 Temperature 98.4 F Pulse Rate 53 61 62 Respiratory 16 19 14 Rate Blood Pressure 117/87 125/71 (mmHg) O2 Sat by Pulse 99 99 94 Oximetry 05/19/17 05/19/17 05/19/17 14:00 15:00 15:26 Temperature Pulse Rate 64 61 Respiratory 15 18 18 Rate Blood Pressure 118/83 110/81 (mmHg) O2 Sat by Pulse 97 96 Oximetry 05/19/17 05/19/17 05/19/17 16:00 17:00 18:00 Temperature 98.0 F Pulse Rate Respiratory 18 24 22 Rate Blood Pressure (mmHg) O2 Sat by Pulse Oximetry 05/19/17 05/19/17 05/19/17 19:00 19:13 19:51 Temperature Pulse Rate 63 58 Respiratory 22 21 19 Rate Blood Pressure 140/87 (mmHg) O2 Sat by Pulse 100 100 Oximetry 05/19/17 05/19/17 05/19/17 20:00 20:15 20:30 Temperature 98.2 F Pulse Rate 62 62 62 Respiratory 20 19 19 Rate Blood Pressure 129/88 123/91 129/89 (mmHg) O2 Sat by Pulse 98 98 98 Oximetry 05/19/17 05/19/17 05/19/17 20:46 21:00 21:15 Temperature Pulse Rate 62 64 61 Respiratory 22 18 27 Rate Blood Pressure 119/75 128/75 116/77 (mmHg) O2 Sat by Pulse 97 99 97 Oximetry 05/19/17 05/19/17 05/19/17 21:30 21:45 22:00 Temperature Pulse Rate 62 84 56 Respiratory 17 16 18 Rate Blood Pressure 110/67 127/97 125/82 (mmHg) O2 Sat by Pulse 96 99 98 Oximetry 05/19/17 05/19/17 05/19/17 22:15 22:30 23:00 Temperature Pulse Rate 63 62 51 Respiratory 15 18 21 Rate Blood Pressure 109/66 122/80 (mmHg) O2 Sat by Pulse 96 97 98 Oximetry 05/19/17 05/19/17 05/19/17 23:01 23:15 23:30 Temperature Pulse Rate 52 54 59 Respiratory 20 21 24 Rate Blood Pressure 120/65 123/80 110/69 (mmHg) O2 Sat by Pulse 98 98 96 Oximetry 05/19/17 05/19/17 05/19/17 23:36 23:38 23:39 Temperature 99.1 F Pulse Rate 61 Respiratory 18 19 Rate Blood Pressure (mmHg) O2 Sat by Pulse 99 Oximetry 05/19/17 05/20/17 05/20/17 23:45 00:00 00:15 Temperature Pulse Rate 58 63 74 Respiratory 18 20 37 Rate Blood Pressure 111/66 114/65 118/75 (mmHg) O2 Sat by Pulse 95 95 97 Oximetry 05/20/17 05/20/17 05/20/17 00:30 00:45 01:00 Temperature Pulse Rate 57 59 64 Respiratory 17 17 17 Rate Blood Pressure 102/55 88/58 94/47 (mmHg) O2 Sat by Pulse 97 97 96 Oximetry 05/20/17 05/20/17 05/20/17 01:15 01:31 01:45 Temperature Pulse Rate 61 57 57 Respiratory 16 16 16 Rate Blood Pressure 92/56 115/63 94/64 (mmHg) O2 Sat by Pulse 97 97 96 Oximetry 05/20/17 05/20/17 05/20/17 02:00 02:15 02:30 Temperature Pulse Rate 60 59 61 Respiratory 15 17 17 Rate Blood Pressure 100/62 96/64 97/64 (mmHg) O2 Sat by Pulse 96 97 97 Oximetry 05/20/17 05/20/17 05/20/17 02:45 03:00 03:15 Temperature Pulse Rate 59 55 58 Respiratory 23 15 17 Rate Blood Pressure 98/67 114/77 108/75 (mmHg) O2 Sat by Pulse 97 96 98 Oximetry 05/20/17 05/20/17 05/20/17 03:30 03:45 04:00 Temperature 98.7 F Pulse Rate 58 58 62 Respiratory 18 17 9 Rate Blood Pressure 97/70 97/65 92/71 (mmHg) O2 Sat by Pulse 98 97 96 Oximetry 05/20/17 05/20/17 05/20/17 04:15 04:30 04:45 Temperature Pulse Rate 58 58 59 Respiratory 16 20 17 Rate Blood Pressure 110/70 93/70 94/69 (mmHg) O2 Sat by Pulse 95 97 95 Oximetry 05/20/17 05/20/17 05/20/17 05:00 05:16 05:30 Temperature Pulse Rate 61 59 57 Respiratory 15 16 20 Rate Blood Pressure 107/71 105/72 106/55 (mmHg) O2 Sat by Pulse 97 97 96 Oximetry 05/20/17 05/20/17 05/20/17 05:45 05:55 06:00 Temperature Pulse Rate 58 60 Respiratory 17 22 12 Rate Blood Pressure 119/72 (mmHg) O2 Sat by Pulse 96 97 Oximetry 05/20/17 05/20/17 05/20/17 06:01 06:04 06:15 Temperature Pulse Rate 56 57 55 Respiratory 15 14 17 Rate Blood Pressure 71/46 89/62 101/70 (mmHg) O2 Sat by Pulse 96 96 97 Oximetry 05/20/17 05/20/17 05/20/17 06:30 06:45 07:00 Temperature Pulse Rate 53 58 55 Respiratory 14 10 9 Rate Blood Pressure 101/67 101/70 102/65 (mmHg) O2 Sat by Pulse 97 96 96 Oximetry 05/20/17 05/20/17 05/20/17 07:15 07:31 07:34 Temperature Pulse Rate 60 57 Respiratory 21 19 18 Rate Blood Pressure 111/78 107/71 (mmHg) O2 Sat by Pulse 95 95 Oximetry 05/20/17 05/20/17 05/20/17 07:45 08:00 08:04 Temperature 98.2 F Pulse Rate 56 55 Respiratory 13 15 Rate Blood Pressure 103/74 106/73 (mmHg) O2 Sat by Pulse 96 95 Oximetry Oxygen Devices in Use Now: None Neurology Exam: General: Awake, Alert, Oriented x3 HEENT: Normocephelic/atraumatic, sclera anicteric, mucous membranes moist Neck: Supple Chest: Clear to auscultation bilaterally Cardiovascular: Regular rate and rhythm without murmurs, rubs, gallops Abdomen: Soft, nontender/nondistended Extremities: No clubbing, cyanosis, or edema. Cafe au lait spot on neck Neurological Findings: Awake, Alert, Oriented x3 Speech: fluent without dysarthric, repetition intact Cranial Nerve: PEERL, EOM intact, VFF, no nystagmus, face symmetric bilaterally , facial sensation intact, hearing intact to finger rub bilaterally, palate elevates symmetrically, tongue midline Motor: Minimal movement of the RUE and RLE. Right hand and wrist flexed, increased tone. Full movement with good resistance on the left side Sensation: Notes marked decrease in the right arm and leg to LT/PP. Deep Tendon Reflex: 1+ symmetric in the upper/lower extremities, Babinski - equivocal No tremor Result Diagrams: 05/17/17 13:25 05/18/17 05:33 Additional Lab and Data: Lab Results 05/17/17 05/17/17 05/17/17 Range/Units 13:25 13:25 13:25 WBC 4.5 (3.5-10.8) 10^3/ul RBC 5.05 (4.0-5.4) 10^6/ul Hgb 11.3 L (12.0-16.0) g/dl Hct 36 (35-47) % MCV 72 L (80-97) fL MCH 22 L (27-31) pg MCHC 31 (31-36) g/dl RDW 20 H (10.5-15) % Plt Count 238 (150-450) 10^3/ul MPV 8 (7.4-10.4) um3 Neut % (Auto) 51.1 (38-83) % Lymph % (Auto) 36.1 (25-47) % [place] % (Auto) 5.7 (1-9) % Eos % (Auto) 6.3 H (0-6) % Baso % (Auto) 0.8 (0-2) % Absolute Neuts (auto) 2.3 (1.5-7.7) 10^3/ul Absolute Lymphs (auto) 1.6 (1.0-4.8) 10^3/ul Absolute Monos (auto) 0.3 (0-0.8) 10^3/ul Absolute Eos (auto) 0.3 (0-0.6) 10^3/ul Absolute Basos (auto) 0 (0-0.2) 10^3/ul Absolute Nucleated RBC 0 10^3/ul Nucleated RBC % 0 INR (Anticoag Therapy) 0.95 (0.77-1.02) Sodium 137 (133-145) mmol/L Potassium 4.3 (3.5-5.0) mmol/L Chloride 104 (101-111) mmol/L Carbon Dioxide 28 (22-32) mmol/L Anion Gap 5 (2-11) mmol/L BUN 13 (6-24) mg/dL Creatinine 0.71 (0.51-0.95) mg/dL Est GFR ( Amer) 115.0 (>60) Est GFR (Non-Af Amer) 89.4 (>60) BUN/Creatinine Ratio 18.3 (8-20) Glucose 85 (70-100) mg/dL Lactic Acid (0.5-2.0) mmol/L Calcium 8.9 (8.6-10.3) mg/dL Magnesium 2.1 (1.9-2.7) mg/dL Total Bilirubin 0.20 (0.2-1.0) mg/dL AST 13 (13-39) U/L ALT 10 (7-52) U/L Alkaline Phosphatase 67 (34-104) U/L Total Protein 6.6 (6.4-8.9) g/dL Albumin 4.2 (3.2-5.2) g/dL Globulin 2.4 (2-4) g/dL Albumin/Globulin Ratio 1.8 (1-3) TSH 6.70 H (0.34-5.60) mcIU/mL Urine Color Urine Appearance Urine pH (5-9) Ur Specific Thompson (1.010-1.030) Urine Protein (Negative) Urine Ketones (Negative) Urine Blood (Negative) Urine Nitrate (Negative) Urine Bilirubin (Negative) Urine Urobilinogen (Negative) Ur Leukocyte Esterase (Negative) Urine Glucose (Negative) Urine Opiates Screen (None Detect) Ur Barbiturates Screen (None Detect) Phenytoin 18.4 (10-20) mcg/mL Ur Phencyclidine Scrn (None Detect) Ur Amphetamines Screen (None Detect) U Benzodiazepines Scrn (None Detect) Urine Cocaine Screen (None Detect) U Cannabinoids Screen (None Detect) 05/17/17 05/17/17 05/17/17 Range/Units 13:25 13:38 13:38 WBC (3.5-10.8) 10^3/ul RBC (4.0-5.4) 10^6/ul Hgb (12.0-16.0) g/dl Hct (35-47) % MCV (80-97) fL MCH (27-31) pg MCHC (31-36) g/dl RDW (10.5-15) % Plt Count (150-450) 10^3/ul MPV (7.4-10.4) um3 Neut % (Auto) (38-83) % Lymph % (Auto) (25-47) % [place] % (Auto) (1-9) % Eos % (Auto) (0-6) % Baso % (Auto) (0-2) % Absolute Neuts (auto) (1.5-7.7) 10^3/ul Absolute Lymphs (auto) (1.0-4.8) 10^3/ul Absolute Monos (auto) (0-0.8) 10^3/ul Absolute Eos (auto) (0-0.6) 10^3/ul Absolute Basos (auto) (0-0.2) 10^3/ul Absolute Nucleated RBC 10^3/ul Nucleated RBC % INR (Anticoag Therapy) (0.77-1.02) Sodium (133-145) mmol/L Potassium (3.5-5.0) mmol/L Chloride (101-111) mmol/L Carbon Dioxide (22-32) mmol/L Anion Gap (2-11) mmol/L BUN (6-24) mg/dL Creatinine (0.51-0.95) mg/dL Est GFR ( Amer) (>60) Est GFR (Non-Af Amer) (>60) BUN/Creatinine Ratio (8-20) Glucose (70-100) mg/dL Lactic Acid 0.8 (0.5-2.0) mmol/L Calcium (8.6-10.3) mg/dL Magnesium (1.9-2.7) mg/dL Total Bilirubin (0.2-1.0) mg/dL AST (13-39) U/L ALT (7-52) U/L Alkaline Phosphatase (34-104) U/L Total Protein (6.4-8.9) g/dL Albumin (3.2-5.2) g/dL Globulin (2-4) g/dL Albumin/Globulin Ratio (1-3) TSH (0.34-5.60) mcIU/mL Urine Color Straw Urine Appearance Clear Urine pH 7.0 (5-9) Ur Specific Thompson 1.005 L (1.010-1.030) Urine Protein Negative (Negative) Urine Ketones Negative (Negative) Urine Blood Negative (Negative) Urine Nitrate Negative (Negative) Urine Bilirubin Negative (Negative) Urine Urobilinogen Negative (Negative) Ur Leukocyte Esterase Negative (Negative) Urine Glucose Negative (Negative) Urine Opiates Screen None detected (None Detect) Ur Barbiturates Screen None detected (None Detect) Phenytoin (10-20) mcg/mL Ur Phencyclidine Scrn None detected (None Detect) Ur Amphetamines Screen None detected (None Detect) U Benzodiazepines Scrn None detected (None Detect) Urine Cocaine Screen None detected (None Detect) U Cannabinoids Screen None detected (None Detect) Microbiology and Other Data: Microbiology 05/17/17 20:00 Nasal Screen MRSA (PCR)(PATY) - Final Nasal Mrsa Not Detected Assessment/Plan Assessment: 46 year old with a history of substance abuse, currently in [place] rehabilitation facility, history of seizures and 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 Was treated with Dilantin and Keppra on admission with ongoing seizure like activity: -- No seizures overnight: PNEA suspected. Reassured the patient that we are not seeing any EEG changes with the events. At times, incontinent of bladder. No more vomiting. Stopped Dilantin and Keppra completely last night. --Right sided numbness and weakness: unclear etiology. Repeat MRI shows no abnormalities to explain her symptoms. Suspect psychogenic in nature. I have observed her moving the right arm and leg at times. --Zofran prn for vomiting --Plan to D/C continuous monitoring today. Spoke with hospitalist yesterday. Psych to see today. Will start working on discharge planning
--- NOTE | 2017-05-20 09:01 | EEG ---
[facility] VIDEO/EEG MONITORING - Monitoring Monitoring Start Date: 05/18/17 Current Monitoring Session: 05/19/17 at 08:05 to 14:32, then patient was unhooked for MRI and recording continued from 05/19/17 at 18:33 to 05/20/17 at 07:03 EEG Clinical Indication: Kamryn Whitney is a 46 year old woman incarcerated at [place] [facility] and was brought in with increased seizure frequency. In [place] she has been having seizures every day to every other day and actually wears a helmet in the unit. She has seizures that cause her to drop and hit her head. She does have bladder incontinence at times with these events. After her seizures she has difficulty moving her right side and her hand actually becomes clawed. She has a prodrome of nausea and a metal taste in her mouth. At times she has seizures that cause her to fall out of bed. She was brought to the emergency room where she had an event withnessed by staff involving rolling on her left side, eyes were closed, foaming at the mouth. This lasted a few minutes and she was given Ativan and shortly after the event subsided. She was noted to desaturate during the event and was put on Oxygen. She then had another event in the ER and was again given Ativan. She continued to have "generalized tonic clonic movements" after that and was given more Ativan. She then had another seizure lasting 5 minutes and at this point EEG was started for continuous monitoring in the ICU for characterization. Previous day LTM demonstrated multiple events which were non-epileptic in nature and LTM is continued as the patient is weaned from her antiepileptic medications. Introduction: INTRODUCTION: The EEG was monitored from 21 scalp electrodes. Nineteen electrodes consisted of the standard parasagittal, temporal and midline leads of the International 10 -20 system. In addition, special electrodes T1 and T2 were placed. EEG data were recorded on an [place] system with simultaneous MPEG-4 digital video recording of patient behavior. EEG recording was in a monopolar montage with all electrodes referenced to FCz. Significant behavioral events were signaled by an event button, or putative electrical seizure events were detected by a computer program. All EEG data were reviewed in their entirety on a monitor with reconstruction of montages and adjustments of sensitivity and filtering. Simultaneous patient behavior was viewed on an adjacent monitor and correlated with the EEG. - Medications Active Medications: Acetaminophen (Tylenol Tab*) 650 mg PO Q6H PRN PRN Reason: FEVER/PAIN Last Admin: 05/19/17 19:01 Dose: 650 mg Albuterol (Ventolin Hfa Inhaler*) 2 puff INH Q4H PRN PRN Reason: SOB/WHEEZING Cetirizine HCl (Zyrtec*) 10 mg PO DAILY [facility] PRN Reason: Protocol Last Admin: 05/20/17 08:06 Dose: 10 mg Heparin Sodium (Porcine) (Heparin Vial(*)) 5,000 units SUBCUT Q8HR [facility] Last Admin: 05/20/17 05:50 Dose: 5,000 units Sodium Chloride (Ns 0.9% 1000 Ml*) 1,000 mls @ 50 mls/hr IV PER RATE [facility] Levothyroxine Sodium (Synthroid Tab*) 100 mcg PO 0600 [facility] Last Admin: 05/20/17 05:50 Dose: 100 mcg Montelukast Sodium (Singulair Tab*) 10 mg PO DAILY [facility] PRN Reason: Protocol Last Admin: 05/20/17 08:06 Dose: 10 mg Pto Nf Med ( Glecaprevir/Pibrentasvir [ Mavyret 100-40 Mg Tablet] 3 Cap) 3 cap PO DAILY [facility] Last Admin: 05/20/17 08:07 Dose: 3 cap Ondansetron HCl (Zofran Inj*) 4 mg IV Q6H PRN PRN Reason: NAUSEA Last Admin: 05/18/17 21:58 Dose: 4 mg Polyethylene Glycol/Electrolytes (Miralax*) 17 gm PO BID [facility] Last Admin: 05/20/17 08:05 Dose: 17 gm The patient received her last dose of levetiracetam 750mg and phenytoin 100mg in the AM on 05/19, then these medications were discontinued. She received 2mg lorazepam IV at 15:26 for her MRI - Description Background: The waking background showed appropriate organization with clearly defined anterior-posterior voltage and frequency gradients. There was a defined posterior dominant rhythm of 9 Hertz, which was symmetrical and showed normal reactivity. Anteriorly, there was the expected pattern of lower voltage and more irregular theta and beta rhythms. There was excess beta activity present, consistent with medication effect. The sleep background was appropriately organized with well-developed spindles and vertex waves indicative of stage 2 sleep. These sleep transients showed appropriate morphology and were bilaterally synchronous and symmetrical. Development of diffuse delta range frequencies with dropout of stage 2 architecture accompanied transition to slow wave sleep, and a lower voltage mixed frequency pattern associated with eye movements was consistent with REM sleep. Intericatal Epileptiform Activity: None Ictal Activity: None - Impression Impression: This is a normal long-term monitoring session. There are no epileptiform abnormalities or ictal patterns/seizures. Excess beta activity is an expected finding in the setting of benzodiazepine use. The patient did not experience any events during this monitoring period.
[2017-05-20] MEDS: Acetaminophen TAB* 325 MG PO PRN (10:09)
--- NOTE | 2017-05-20 11:57 | PN ---
Subjective Date of Service: 05/20/17 Interval History: Pt appears better and more optimistic. was able to stand up with RN held, but still unable to move R leg when laying in bed No seizure activity at night Objective Active Medications: Acetaminophen (Tylenol Tab*) 650 mg PO Q6H PRN PRN Reason: FEVER/PAIN Last Admin: 05/20/17 10:09 Dose: 650 mg Albuterol (Ventolin Hfa Inhaler*) 2 puff INH Q4H PRN PRN Reason: SOB/WHEEZING Cetirizine HCl (Zyrtec*) 10 mg PO DAILY [facility] PRN Reason: Protocol Last Admin: 05/20/17 08:06 Dose: 10 mg Heparin Sodium (Porcine) (Heparin Vial(*)) 5,000 units SUBCUT Q8HR [facility] Last Admin: 05/20/17 05:50 Dose: 5,000 units Sodium Chloride (Ns 0.9% 1000 Ml*) 1,000 mls @ 50 mls/hr IV PER RATE [facility] Levothyroxine Sodium (Synthroid Tab*) 100 mcg PO 0600 [facility] Last Admin: 05/20/17 05:50 Dose: 100 mcg Montelukast Sodium (Singulair Tab*) 10 mg PO DAILY [facility] PRN Reason: Protocol Last Admin: 05/20/17 08:06 Dose: 10 mg Pto Nf Med ( Glecaprevir/Pibrentasvir [ Mavyret 100-40 Mg Tablet] 3 Cap) 3 cap PO DAILY [facility] Last Admin: 05/20/17 08:07 Dose: 3 cap Ondansetron HCl (Zofran Inj*) 4 mg IV Q6H PRN PRN Reason: NAUSEA Last Admin: 05/18/17 21:58 Dose: 4 mg Polyethylene Glycol/Electrolytes (Miralax*) 17 gm PO BID [facility] Last Admin: 05/20/17 08:05 Dose: 17 gm Vital Signs - 8 hr 05/20/17 05/20/17 05/20/17 04:00 04:15 04:30 Temperature 98.7 F Pulse Rate 62 58 58 Respiratory 9 16 20 Rate Blood Pressure 92/71 110/70 93/70 (mmHg) O2 Sat by Pulse 96 95 97 Oximetry 05/20/17 05/20/17 05/20/17 04:45 05:00 05:16 Temperature Pulse Rate 59 61 59 Respiratory 17 15 16 Rate Blood Pressure 94/69 107/71 105/72 (mmHg) O2 Sat by Pulse 95 97 97 Oximetry 05/20/17 05/20/17 05/20/17 05:30 05:45 05:55 Temperature Pulse Rate 57 58 Respiratory 20 17 22 Rate Blood Pressure 106/55 119/72 (mmHg) O2 Sat by Pulse 96 96 Oximetry 05/20/17 05/20/17 05/20/17 06:00 06:01 06:04 Temperature Pulse Rate 60 56 57 Respiratory 12 15 14 Rate Blood Pressure 71/46 89/62 (mmHg) O2 Sat by Pulse 97 96 96 Oximetry 05/20/17 05/20/17 05/20/17 06:15 06:30 06:45 Temperature Pulse Rate 55 53 58 Respiratory 17 14 10 Rate Blood Pressure 101/70 101/67 101/70 (mmHg) O2 Sat by Pulse 97 97 96 Oximetry 05/20/17 05/20/17 05/20/17 07:00 07:15 07:31 Temperature Pulse Rate 55 60 57 Respiratory 9 21 19 Rate Blood Pressure 102/65 111/78 107/71 (mmHg) O2 Sat by Pulse 96 95 95 Oximetry 05/20/17 05/20/17 05/20/17 07:34 07:45 08:00 Temperature Pulse Rate 56 55 Respiratory 18 13 15 Rate Blood Pressure 103/74 106/73 (mmHg) O2 Sat by Pulse 96 95 Oximetry 05/20/17 05/20/17 05/20/17 08:04 08:15 08:30 Temperature 98.2 F Pulse Rate 55 55 Respiratory 18 18 Rate Blood Pressure 108/75 115/78 (mmHg) O2 Sat by Pulse 95 97 Oximetry 05/20/17 05/20/17 05/20/17 08:45 09:00 09:15 Temperature Pulse Rate 66 61 Respiratory 14 16 16 Rate Blood Pressure 115/82 136/88 (mmHg) O2 Sat by Pulse 97 97 Oximetry 05/20/17 05/20/17 05/20/17 09:31 09:46 10:00 Temperature Pulse Rate 56 58 62 Respiratory 17 17 18 Rate Blood Pressure 139/89 122/90 131/90 (mmHg) O2 Sat by Pulse 96 97 Oximetry 05/20/17 05/20/17 05/20/17 10:04 10:16 10:30 Temperature Pulse Rate 54 56 Respiratory 18 20 16 Rate Blood Pressure 110/77 115/76 (mmHg) O2 Sat by Pulse 97 97 Oximetry 05/20/17 05/20/17 05/20/17 10:45 11:00 11:01 Temperature Pulse Rate 59 72 61 Respiratory 20 19 14 Rate Blood Pressure 124/91 117/70 (mmHg) O2 Sat by Pulse 95 96 96 Oximetry 05/20/17 11:30 Temperature Pulse Rate Respiratory 14 Rate Blood Pressure (mmHg) O2 Sat by Pulse Oximetry Oxygen Devices in Use Now: None Appearance: 46 yo f in nAD, AAOx3 Eyes: No Scleral Icterus, PERRLA Ears/Nose/Mouth/Throat: NL Teeth, Lips, Gums, Mucous Membranes Moist Neck: NL Appearance and Movements; NL JVP, Trachea Midline Respiratory: Symmetrical Chest Expansion and Respiratory Effort, Clear to Auscultation Cardiovascular: NL Sounds; No Murmurs; No JVD, RRR Abdominal: NL Sounds; No Tenderness; No Distention Lymphatic: No Cervical Adenopathy Extremities: No Edema, No Clubbing, Cyanosis Skin: No Rash or Ulcers, No Nodules or Sclerosis Neurological: Alert and Oriented x 3, NL Muscle Strength and Tone, - - R hand contracted, R leg weak at 3/5 Result Diagrams: 05/17/17 13:25 05/18/17 05:33 Additional Lab and Data: Lab Results 05/17/17 05/17/17 05/17/17 Range/Units 13:25 13:25 13:25 WBC 4.5 (3.5-10.8) 10^3/ul RBC 5.05 (4.0-5.4) 10^6/ul Hgb 11.3 L (12.0-16.0) g/dl Hct 36 (35-47) % MCV 72 L (80-97) fL MCH 22 L (27-31) pg MCHC 31 (31-36) g/dl RDW 20 H (10.5-15) % Plt Count 238 (150-450) 10^3/ul MPV 8 (7.4-10.4) um3 Neut % (Auto) 51.1 (38-83) % Lymph % (Auto) 36.1 (25-47) % [place] % (Auto) 5.7 (1-9) % Eos % (Auto) 6.3 H (0-6) % Baso % (Auto) 0.8 (0-2) % Absolute Neuts (auto) 2.3 (1.5-7.7) 10^3/ul Absolute Lymphs (auto) 1.6 (1.0-4.8) 10^3/ul Absolute Monos (auto) 0.3 (0-0.8) 10^3/ul Absolute Eos (auto) 0.3 (0-0.6) 10^3/ul Absolute Basos (auto) 0 (0-0.2) 10^3/ul Absolute Nucleated RBC 0 10^3/ul Nucleated RBC % 0 INR (Anticoag Therapy) 0.95 (0.77-1.02) Sodium 137 (133-145) mmol/L Potassium 4.3 (3.5-5.0) mmol/L Chloride 104 (101-111) mmol/L Carbon Dioxide 28 (22-32) mmol/L Anion Gap 5 (2-11) mmol/L BUN 13 (6-24) mg/dL Creatinine 0.71 (0.51-0.95) mg/dL Est GFR ( Amer) 115.0 (>60) Est GFR (Non-Af Amer) 89.4 (>60) BUN/Creatinine Ratio 18.3 (8-20) Glucose 85 (70-100) mg/dL Lactic Acid (0.5-2.0) mmol/L Calcium 8.9 (8.6-10.3) mg/dL Magnesium 2.1 (1.9-2.7) mg/dL Total Bilirubin 0.20 (0.2-1.0) mg/dL AST 13 (13-39) U/L ALT 10 (7-52) U/L Alkaline Phosphatase 67 (34-104) U/L Total Protein 6.6 (6.4-8.9) g/dL Albumin 4.2 (3.2-5.2) g/dL Globulin 2.4 (2-4) g/dL Albumin/Globulin Ratio 1.8 (1-3) TSH 6.70 H (0.34-5.60) mcIU/mL Urine Color Urine Appearance Urine pH (5-9) Ur Specific [employer] (1.010-1.030) Urine Protein (Negative) Urine Ketones (Negative) Urine Blood (Negative) Urine Nitrate (Negative) Urine Bilirubin (Negative) Urine Urobilinogen (Negative) Ur Leukocyte Esterase (Negative) Urine Glucose (Negative) Urine Opiates Screen (None Detect) Ur Barbiturates Screen (None Detect) Phenytoin 18.4 (10-20) mcg/mL Ur Phencyclidine Scrn (None Detect) Ur Amphetamines Screen (None Detect) U Benzodiazepines Scrn (None Detect) Urine Cocaine Screen (None Detect) U Cannabinoids Screen (None Detect) 05/17/17 05/17/17 05/17/17 Range/Units 13:25 13:38 13:38 WBC (3.5-10.8) 10^3/ul RBC (4.0-5.4) 10^6/ul Hgb (12.0-16.0) g/dl Hct (35-47) % MCV (80-97) fL MCH (27-31) pg MCHC (31-36) g/dl RDW (10.5-15) % Plt Count (150-450) 10^3/ul MPV (7.4-10.4) um3 Neut % (Auto) (38-83) % Lymph % (Auto) (25-47) % [place] % (Auto) (1-9) % Eos % (Auto) (0-6) % Baso % (Auto) (0-2) % Absolute Neuts (auto) (1.5-7.7) 10^3/ul Absolute Lymphs (auto) (1.0-4.8) 10^3/ul Absolute Monos (auto) (0-0.8) 10^3/ul Absolute Eos (auto) (0-0.6) 10^3/ul Absolute Basos (auto) (0-0.2) 10^3/ul Absolute Nucleated RBC 10^3/ul Nucleated RBC % INR (Anticoag Therapy) (0.77-1.02) Sodium (133-145) mmol/L Potassium (3.5-5.0) mmol/L Chloride (101-111) mmol/L Carbon Dioxide (22-32) mmol/L Anion Gap (2-11) mmol/L BUN (6-24) mg/dL Creatinine (0.51-0.95) mg/dL Est GFR ( Amer) (>60) Est GFR (Non-Af Amer) (>60) BUN/Creatinine Ratio (8-20) Glucose (70-100) mg/dL Lactic Acid 0.8 (0.5-2.0) mmol/L Calcium (8.6-10.3) mg/dL Magnesium (1.9-2.7) mg/dL Total Bilirubin (0.2-1.0) mg/dL AST (13-39) U/L ALT (7-52) U/L Alkaline Phosphatase (34-104) U/L Total Protein (6.4-8.9) g/dL Albumin (3.2-5.2) g/dL Globulin (2-4) g/dL Albumin/Globulin Ratio (1-3) TSH (0.34-5.60) mcIU/mL Urine Color Straw Urine Appearance Clear Urine pH 7.0 (5-9) Ur Specific [employer] 1.005 L (1.010-1.030) Urine Protein Negative (Negative) Urine Ketones Negative (Negative) Urine Blood Negative (Negative) Urine Nitrate Negative (Negative) Urine Bilirubin Negative (Negative) Urine Urobilinogen Negative (Negative) Ur Leukocyte Esterase Negative (Negative) Urine Glucose Negative (Negative) Urine Opiates Screen None detected (None Detect) Ur Barbiturates Screen None detected (None Detect) Phenytoin (10-20) mcg/mL Ur Phencyclidine Scrn None detected (None Detect) Ur Amphetamines Screen None detected (None Detect) U Benzodiazepines Scrn None detected (None Detect) Urine Cocaine Screen None detected (None Detect) U Cannabinoids Screen None detected (None Detect) Microbiology and Other Data: Microbiology 05/17/17 20:00 Nasal Screen MRSA (PCR)(PATY) - Final Nasal Mrsa Not Detected Assess/Plan/Problems-Billing Assessment: 46 year old with a history of substance abuse, currently in [facility], history of seizures and 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 Was treated with Dilantin and Keppra on admission with ongoing seizure like activity: - - Patient Problems (1) Seizures Comment: Epileptis vs nonepileptic Pt's seizures are nonepileptic complicated by what appears to be Rickey's paralysis (R sided weakness), although the deficit appears to be purely functional As per recommendation fo neurology was weaned off her seizure meds. cont PT eval. Asked psychiatry to see Pt (2) Hepatitis C Comment: cont outpatient treatment (3) Hypothyroidism Comment: TSH 6.7 cont Synthroid at current dose. Recommend repeat TSH as outpatient once pt's neuro status stabilized. No dose adjustment for now (4) DVT prophylaxis Comment: HSQ Status and Disposition: inpatient
--- NOTE | 2017-05-20 20:39 | EEG ---
ELECTROENCEPHALOGRAPHY: DATE OF STUDY: 05/18/17 - ROOM #407 ORDERING PHYSICIAN: Dr. Tovar. This is a routine EEG, which was recorded for 1 hour and 17 minutes. CLINICAL PROBLEM: This is a 46-year-old woman who reports a history of seizures which have increased in frequencies and she has been admitted to [facility]. She experienced multiple seizure-like events in the emergency department and EEG was requested to evaluate for epileptiform abnormalities. MEDICATIONS: Unknown at this time. REPORT: The waking background showed appropriate organization with clearly defined anterior to posterior voltage and frequency gradients. There was a well -defined posterior dominant rhythm of 9 Hz, which was symmetrical and showed normal reactivity. Anteriorly, there was an expected pattern of lower voltage, irregular, mixed faster frequencies. Hyperventilation and photic stimulation were not performed. Attenuation of the occipital rhythm accompanied drowsiness. The sleep background was appropriately organized with well-developed sleep spindles and vertex waves. These sleep transients showed appropriate morphology and were bilaterally synchronous and symmetrical. Throughout the recording, there were no epileptiform discharges, focal features , paroxysmal features or significant interhemispheric asymmetries. CLINICAL IMPRESSION: This is a normal waking and sleep EEG. There are no epileptiform abnormalities. [id number]/[facility] #: [id number] [facility]
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
[2017-05-21] MEDS: Acetaminophen TAB* 325 MG PO PRN ×2 (00:03→09:29)
[2017-05-21] MEDS: Levothyroxine TAB* 100 MCG TAB PO SCH (06:04)
[2017-05-21] MEDS: Heparin VIAL(*) 5000 UNITS/ML VIAL (FIVE THOUSAND) SUBCUT SCH ×2 (06:04→13:52)
[2017-05-21] MEDS: Polyethylene Glycol 3350* 17 GM PACKET PO SCH (09:27)
[2017-05-21] MEDS: GLECAPREVIR PO SCH (09:29)
[2017-05-21] MEDS: Montelukast Sodium TAB* 10 MG PO SCH (09:29)
[2017-05-21] MEDS: Cetirizine* 10 MG TAB PO SCH (09:29)
[2017-05-21] MEDS: PIBRENTASVIR PO SCH (09:29)
--- NOTE | 2017-05-21 11:35 | EEG ---
RETIREMENT VIDEO/EEG MONITORING - Monitoring Monitoring Start Date: 05/18/17 Current Monitoring Session: 05/20/17 from 07:09 to 13:30 EEG Clinical Indication: Kamryn Whitney is a 46 year old woman incarcerated at [place] and was brought in with increased seizure frequency. In [place] she has been having seizures every day to every other day and actually wears a helmet in the unit. She has seizures that cause her to drop and hit her head. She does have bladder incontinence at times with these events. After her seizures she has difficulty moving her right side and her hand actually becomes clawed. She has a prodrome of nausea and a metal taste in her mouth. At times she has seizures that cause her to fall out of bed. She was brought to the emergency room where she had an event withnessed by staff involving rolling on her left side, eyes were closed, foaming at the mouth. This lasted a few minutes and she was given Ativan and shortly after the event subsided. She was noted to desaturate during the event and was put on Oxygen. She then had another event in the ER and was again given Ativan. She continued to have "generalized tonic clonic movements" after that and was given more Ativan. She then had another seizure lasting 5 minutes and at this point EEG was started for continuous monitoring in the ICU for characterization. Previous day LTM demonstrated multiple events which were non-epileptic in nature and LTM is continued as the patient is weaned from her antiepileptic medications. Introduction: INTRODUCTION: The EEG was monitored from 21 scalp electrodes. Nineteen electrodes consisted of the standard parasagittal, temporal and midline leads of the International 10 -20 system. In addition, special electrodes T1 and T2 were placed. EEG data were recorded on an [employer] system with simultaneous MPEG-4 digital video recording of patient behavior. EEG recording was in a monopolar montage with all electrodes referenced to FCz. Significant behavioral events were signaled by an event button, or putative electrical seizure events were detected by a computer program. All EEG data were reviewed in their entirety on a monitor with reconstruction of montages and adjustments of sensitivity and filtering. Simultaneous patient behavior was viewed on an adjacent monitor and correlated with the EEG. - Medications Active Medications: Acetaminophen (Tylenol Tab*) 650 mg PO Q6H PRN PRN Reason: FEVER/PAIN Last Admin: 05/21/17 09:29 Dose: 650 mg Albuterol (Ventolin Hfa Inhaler*) 2 puff INH Q4H PRN PRN Reason: SOB/WHEEZING Cetirizine HCl (Zyrtec*) 10 mg PO DAILY [facility] PRN Reason: Protocol Last Admin: 05/21/17 09:29 Dose: 10 mg Heparin Sodium (Porcine) (Heparin Vial(*)) 5,000 units SUBCUT Q8HR SUKH Last Admin: 05/21/17 06:04 Dose: 5,000 units Levothyroxine Sodium (Synthroid Tab*) 100 mcg PO 0600 SU[facility] Last Admin: 05/21/17 06:04 Dose: 100 mcg Montelukast Sodium (Singulair Tab*) 10 mg PO DAILY [facility] PRN Reason: Protocol Last Admin: 05/21/17 09:29 Dose: 10 mg Pto Nf Med ( Glecaprevir/Pibrentasvir [ Mavyret 100-40 Mg Tablet] 3 Cap) 3 cap PO DAILY [facility] Last Admin: 05/21/17 09:29 Dose: 3 cap Ondansetron HCl (Zofran Inj*) 4 mg IV Q6H PRN PRN Reason: NAUSEA Last Admin: 05/18/17 21:58 Dose: 4 mg Polyethylene Glycol/Electrolytes (Miralax*) 17 gm PO BID [facility] Last Admin: 05/21/17 09:27 Dose: Not Given - Description Background: The waking background showed appropriate organization with clearly defined anterior-posterior voltage and frequency gradients. There was a defined posterior dominant rhythm of 9 Hertz, which was symmetrical and showed normal reactivity. Anteriorly, there was the expected pattern of lower voltage and more irregular theta and beta rhythms. The sleep background was appropriately organized with well-developed spindles and vertex waves indicative of stage 2 sleep. These sleep transients showed appropriate morphology and were bilaterally synchronous and symmetrical. Other sleep stages were not observed during this recording period. Intericatal Epileptiform Activity: None Ictal Activity: None - Impression Impression: This is a normal long-term monitoring session. There are no epileptiform abnormalities or ictal patterns/seizures. The patient did not experience any events during this monitoring period.
[2017-05-21 12:08] VITALS: BP 122/85
--- NOTE | 2017-05-22 10:39 | DS ---
CC: [facility]; [facility] * DISCHARGE SUMMARY: DATE OF ADMISSION: 05/17/17 DATE OF DISCHARGE: 05/21/17 PRIMARY CARE PROVIDER: Provider from [facility]. DISCHARGE DIAGNOSES: 1. Nonepileptic seizures. 2. Elevated TSH, follow up in 4 to 6 weeks with a blood draw. 3. Right-sided weakness due to conversion disorder. MEDICATIONS AT DISCHARGE: Include: 1. Accolate 20 mg b.i.d. 2. Polyethylene glycol 17 g b.i.d. p.r.n. 3. Naproxen 375 mg b.i.d. p.r.n. 4. Levothyroxine 100 mcg daily. 5. Glecaprevir/pibrentasvir 100/40, patient takes three capsules daily of that. 6. Zyrtec 10 mg daily. 7. Albuterol inhaler on a p.r.n. basis. CONSULTATIONS DURING THE HOSPITAL STAY: Included Dr. Christiano Tovar from Neurology and Dr. Brijesh Sanford from Psychiatry. LABORATORY DATA DURING THE HOSPITAL STAY: Included: 1. 05/18/17, sodium 138, potassium 3.8, chloride 105, carbon dioxide 28, BUN 14 , creatinine 0.7. 2. White blood cell count 4.5, hemoglobin of 11.3, hematocrit of 36, MCV of 72 , and platelets of 238. 3. Phenytoin level on admission was 18.4. Keppra level was 17.0. Otherwise, the patient's urine drug screen was unremarkable. Brain MRI with and without contrast obtained on 05/19/17, impression: "Normal MRI of the brain with and without intravenous contrast." Please note that the patient had multiple EEGs performed in the hospital stay as well as was on continuous EEG for at least 3 days and no epileptiform discharges were noted. HOSPITALIZATION COURSE: Kamryn Mix is a 46-year-old female with a history of cocaine use, who is right now staying at [facility], who presented to the hospital with intractable seizures. The patient has a history of seizures and prior to that was on Keppra and Dilantin. There was a question of her seizures being nonepileptic, but it was never fully diagnosed. The patient was admitted to the intensive care unit on continuous EEG monitoring. She spent 3 days in the intensive care unit and during that time, she had multiple nonepileptic seizures. She never had epileptiform abnormalities noted on her EEG. Dr. Tovar consulted on the patient and recommended slowly withdrawing all of her medications including benzodiazepines. The patient's Keppra and Dilantin were weaned off and the patient's Ativan was also held. Over the course of the treatment and modification of the patient's medications, the patient actually slowly improved and by the time of discharge she has not had nonepileptic seizures for the past [address] Sanford from Psychiatry in consultation also. The patient also was noted to have right- sided weakness due to conversion disorder. The patient underwent physical therapy and occupation therapy evaluation, and was noted to need a higher level of care. Due to that, she is going to be transferred directly to [facility] for further rehabilitation. PHYSICAL EXAMINATION AT THE TIME OF DISCHARGE: Blood pressure 152/85, heart rate of 58 and regular, respiratory rate 18, oxygen saturation 97% on room air, temperature 98.0. General: The patient is a very pleasant 46-year-old female who was in no acute distress. Alert, awake, and oriented x3. HEENT: Head atraumatic, normocephalic. Eyes: Pupils are equal, reactive to light and accommodation. Oropharynx clear. Mucosa moist. Neck: Supple. No JVD, no bruits bilaterally. Cardiovascular: Regular rate and rhythm. No murmur. Respiratory: Clear to auscultation bilaterally. Abdomen: Soft, nontender. Bowel sounds are present in all 4 quadrants. Extremities: There is no edema. Pulses +2 bilaterally. No clubbing or cyanosis. On neuro evaluation, the patient has right-sided weakness with right upper extremity being slightly contracted and with strength of 3+/5. The right lower extremity is also 3+/5. Despite the patient's weakness during the evaluation, the patient is able to ambulate with a shuffling gait with two person support by the time of discharge. Please note that this is a short summary of the patient's hospitalization. Please refer to further medical records for details. TIME SPENT: Approximately 45 minutes was spent on the patient's discharge. [id number]/[facility] #: [id number] MTDD
== END 2017-05-21 15:00 | DRG 756 ==
LOC: ED 11:24 → EEVIPCON 18:42 → ICU 18:42 → MED 05-20 15:06
PROVIDERS: ADMIT Internal Medicine; ATTEND Internal Medicine
PROC: 4A10X4Z Monitoring of Central Nervous Electrical Activity, External Approach (ICD-10-PCS; principal; 2017-05-18)
DX: F44.5 Conversion disorder with seizures or convulsions (principal); G81.91 Hemiplegia, unspecified affecting right dominant side; Z88.8 Allergy status to other drugs, medicaments and biological substances; E78.5 Hyperlipidemia, unspecified; I10 Essential (primary) hypertension; Z90.710 Acquired absence of both cervix and uterus; Z83.3 Family history of diabetes mellitus; B19.20 Unspecified viral hepatitis C without hepatic coma; F17.200 Nicotine dependence, unspecified, uncomplicated; R29.707 NIHSS score 7; J45.909 Unspecified asthma, uncomplicated; G43.909 Migraine, unspecified, not intractable, without status migrainosus; K58.9 Irritable bowel syndrome, unspecified; K21.9 Gastro-esophageal reflux disease without esophagitis; K22.70 Barrett's esophagus without dysplasia; Z88.1 Allergy status to other antibiotic agents; Z82.49 Family history of ischemic heart disease and other diseases of the circulatory system; Z80.3 Family history of malignant neoplasm of breast; Z80.0 Family history of malignant neoplasm of digestive organs; Z80.41 Family history of malignant neoplasm of ovary; E03.9 Hypothyroidism, unspecified; F32.9 Major depressive disorder, single episode, unspecified; Z62.810 Personal history of physical and sexual abuse in childhood; F14.90 Cocaine use, unspecified, uncomplicated
CPT/HCPCS: 36415; 70450; 70551; 70553; 71045; 80048; 80053; 80177; 80185; 80307; 81003; 83605; 83735; 84443; 85025; 85610; 87641; 93005; 95813; 95951; 97112; 97530; 99284; A9270-GY; A9579; J1644; J2060; J2250; J2405